=== PATIENT | female | born 1940 | race Caucasian/White ===

== ENCOUNTER → 2019-09-10 10:40 | Outpatient (CLI) | payer MEDICARE, OTHER, SELFPAY ==
--- NOTE | ~2019-09-10 | MM_ITS ---
EXAMINATION: MM screening sarah BI w rommel HISTORY: Screening mammogram TECHNIQUE: Craniocaudal and mediolateral oblique 3-D tomosynthesis images were obtained and synthetic 2-D images were generated. CAD analysis was submitted and interpreted. COMPARISON: 04/24/2018, 01/11/2017, 09/02/2015 bilateral digital screening mammogram examinations BREAST PARENCHYMAL COMPOSITION: There are scattered areas of fibroglandular density. FINDINGS: Numerous scattered bilateral benign appearing calcifications are again present. There is no evidence of suspicious mass, calcification, or architectural distortion to suggest malignancy in eit her breast. There has been no suspicious interval change. IMPRESSION: 1. No mammographic evidence of malignancy. 2. Recommend routine screening mammography in one year. BI-RADS Category 2: Benign finding(s). Reviewed, dictated and finalized at location A.
== END ==
PROVIDERS: PCP Internal Medicine; Visit Provider Internal Medicine
DX: Z12.31 Encounter for screening mammogram for malignant neoplasm of breast (principal)
CPT/HCPCS: 77063; 77067

== ENCOUNTER 2020-03-28 18:55 | Emergency (ER) | payer MEDICARE, OTHER, SELFPAY ==
--- NOTE | ~2020-03-28 | XR_ITS ---
EXAMINATION: XR chest 1V portable EXAM DATE: 03/28/2020 19:24 INDICATION: Heart palpitations. History of hypertension. TECHNIQUE: Portable AP frontal chest x-ray was obtained. Comparison is made to prior examination from 06/11/2014. FINDINGS: Approximately 6 mm right midlung zone nodular density not definitely identified on prior x- ray, possible intraparenchymal nodule. Follow-up nonemergent chest CT. No confluent consolidation, pneumothorax or pleural effusion suspected. Cardiomediastinal silhouette is normal. Mild thoracic spondylosis. IMPRESSION: Indeterminate 6 mm nodular density, follow-up nonemergent chest CT. No acute findings. Reviewed, dictated and finalized at location A. IMPRESSION: Indeterminate 6 mm nodular density, follow-up nonemergent chest CT . No acute findings.
[2020-03-28 18:59] VITALS: PULSE 75; RESP 16; TEMP 36.6; O2SAT 96
[2020-03-28 19:06] VITALS: BP 177/86
--- NOTE | 2020-03-28 19:10 | ECG_ITS ---
Measurements Intervals [place] Rate: 78 P: -2 OK: 173 QRS: 20 QRSD: 98 T: 60 QT: 364 QTc: 415 Interpretive Statements SINUS RHYTHM BASELINE ARTIFACT- I, III, V1 NORMAL ECG Electronically Signed On 03-28-2020 19:37:58 CDT by Jay Ray D.O.
--- NOTE | 2020-03-28 19:11 | ED.GENADULT ---
HPI - General Adult General Chief complaint: Arrhythmia/Palpitations Stated complaint: palpatations Time Seen by Provider: 03/28/20 19:02 Source: RN notes reviewed History of Present Illness HPI narrative: Patient presents to emergency department from home for palpitations. Patient states that today she had episode of palpitations where she felt like her heart was racing. She states that with this episode she became flushed and had tingling in her bilateral hands as well as a rash to her bilateral forearms. Patient states the symptoms last approximately 2 hours and resolved on their own. She is asymptomatic at this time. She denies having any chest pain or shortness of breath during the episode. Patient denies any previous history of cardiac arrhythmia states she had just eaten a birthday lunch prior to this and had crab cakes. She denies any fevers or chills Related Data Home Medications Medication Instructions Recorded Confirmed calcium polycarbophil 625 mg tablet 1,250 mg PO BID 04/24/19 01/28/20 conjugated estrogens 0.625 mg/gram 0.625 mg VAGINAL DAILY 04/24/19 01/28/20 vaginal cream desonide 0.05 % topical cream 1 applic TOPICAL DAILY 04/24/19 01/28/20 famotidine 10 mg tablet 10 mg PO DAILY 04/24/19 01/28/20 fexofenadine 180 mg tablet 180 mg PO DAILY 04/24/19 01/28/20 lysine 500 mg tablet 500 mg PO DAILY 04/24/19 01/28/20 multivitamin 1 tablet PO DAILY 04/24/19 01/28/20 omega-3 fatty acids 1,000 mg 1,000 mg PO BID 04/24/19 01/28/20 capsule polyethylene glycol 3350 17 17 gm PO DAILY 04/24/19 01/28/20 gram/dose oral powder solifenacin 5 mg tablet 5 mg PO DAILY 04/24/19 01/28/20 vit C 250 mg-E 200 unit-zinc 40 1 tablet PO BID 04/24/19 01/28/20 mg-copper 1 [id number] capsule Allergies Allergy/AdvReac Type Severity Reaction Status Date / Time fluconazole Allergy Unknown Unknown Verified 01/28/20 10:24 ibuprofen Allergy Unknown Unknown Verified 01/28/20 10:24 methylprednisolone Allergy Unknown Unknown Verified 01/28/20 10:24 nitroglycerin Allergy Unknown Unknown Verified 01/28/20 10:24 Sulfa (Sulfonamide Allergy Unknown Rash Verified 01/28/20 10:24 Antibiotics) sulfanilamide Allergy Unknown Rash Verified 01/28/20 10:24 tramadol Allergy Unknown Other Verified 01/28/20 10:24 Review of Systems Review of Systems: Narrative: Gen.: Denies fevers or chills Eyes: Denies eye pain or visual change ENT: Denies congestion Respiratory: Denies shortness of breath or cough CV: See HPI GI: Denies abdominal pain nausea, emesis or diarrhea denies burning, urgency, frequency or hematuria Musculoskeletal: Denies back pain or muscle pain Neuro: Reports tingling in bilateral hands Skin: Denies rash Except as documented, all other systems reviewed and negative PMF Past Medical History Medical History Benign essential hypertension BMI 23.0-23.9, adult Encounter for general adult medical examination w/o abnormal findings Encounter for Medicare annual wellness exam Hearing loss Hormone replacement therapy (HRT) Hot flashes Hyperlipidemia Hypothyroidism (acquired) On fpc drug therapy Overactive bladder Vitamin D deficiency Family History Family History Mother Family history of osteoporosis Sibling Family history of cardiac disorder Father Family history of coronary artery disease Acute myocardial infarction Other Family history of arthritis Hypertension Social History Social History Smoking status: Never smoker Second hand tobacco smoke exposure: No Alcohol intake: never Gender identity (if verbalized by the patient): Female Exam Narrative: Exam Narrative: APPEARANCE: No acute distress, nontoxic, resting in bed EYES: EOMI HEENT: Normocephalic, atraumatic, OMM RESPIRATORY: No respiratory distress Clear to aus
[2020-03-28 19:22] VITALS: BP 163/81; PULSE 73; RESP 16; O2SAT 96
[2020-03-28 19:29] LABS: Basophils Absolute Auto 0.1 K/mm3 (0.0-0.1); Basophils Percent Auto 0.8 % (0.2-1.2); Eosinophils Absolute Auto 0.5 K/mm3 (0-0.3); Eosinophils Percent Auto 6.3 % (0-4.4); Hematocrit 39.5 % (37.0-47.0); Hemoglobin 13.6 g/dL (12.0-15.0); Immature Granulocyte Absolute 0.09 K/mm3 (0.00-0.031); Immature Granulocyte Percent A 1.1 % (0-0.5); Lymphocytes Absolute Auto 2.07 K/mm3 (0.9-3.2); Mean Corpuscular HGB Conc 34.4 g/dl (32-36); Mean Corpuscular Hemoglobin 31.2 pg (26-34); Mean Corpuscular Volume 90.6 fl (80-100); Mean Platelet Volume 8.7 fl (7.4-10.4); Monocytes Absolute Auto 1.1 K/mm3 (0.1-0.6); Monocytes Percent Auto 12.8 % (2.6-8.5); Neutrophils Absolute Auto 4.5 K/mm3 (1.3-6.7); Platelet Count Result 431 k/mm3 (150-375); Red Blood Count 4.36 M/mm3 (4.2-5.4); Red Cell Distribution Width 12.3 % (11.5-14.5); White Blood Count 8.3 K/mm3 (4.5-10.0)
[2020-03-28 19:39] LABS: INR 0.9; Partial Thromboplastin Time 26.9 SECONDS (22.3-36.8); Prothrombin Time 12.2 Seconds (11.1-14.7)
[2020-03-28 19:40] LABS: Anion Gap 12 mmol/L (8-16); Blood Urea Nitrogen 16 mg/dL (7-17); Carbon Dioxide 27 mmol/L (22-30); Chloride 94 mmol/L (98-107); Estimated CRCL calculation 50 ml/min; Estimated Glomerular Filt Rate > 60; Glucose 100 mg/dL (65-105); Magnesium 1.9 mg/dL (1.6-2.3); Potassium 4.6 mmol/L (3.4-5.0); Sodium 133 mmol/L (137-145)
[2020-03-28 19:52] LABS: Troponin I < 0.012 ng/mL (0.000-0.034)
[2020-03-28 20:15] VITALS: BP 157/74; PULSE 70; RESP 17; O2SAT 97
[2020-03-28 21:15] VITALS: BP 158/66; PULSE 76; RESP 14; O2SAT 95
[2020-03-28 22:51] LABS: Troponin I < 0.012 ng/mL (0.000-0.034)
[2020-03-28 23:02] VITALS: BP 147/73; PULSE 74; RESP 16; O2SAT 95
== END 2020-03-28 23:05 | disposition home or self-care (01) ==
PROVIDERS: Emergency Provider Emergency Medicine; PCP Internal Medicine
DX: R00.2 Palpitations (principal); I10 Essential (primary) hypertension; E78.5 Hyperlipidemia, unspecified; E03.9 Hypothyroidism, unspecified; E55.9 Vitamin D deficiency, unspecified; N32.81 Overactive bladder
CPT/HCPCS: 36415; 71045; 80048; 83735; 84484; 85025; 85610; 85730; 93005; 99284

== ENCOUNTER 2020-04-19 08:51 | Outpatient (CLI) | payer MEDICARE, OTHER, SELFPAY ==
--- NOTE | 2020-04-19 09:04 | ECHO_ITS ---
Patient Info Name: Diana Jara Age: 80 years : 1940 Gender: Female Ht: 65 in Wt: 145 lbs BSA: 1.75 m2 HR: 75 bpm BP: 145 / 89 mmHg Heart Rhythm: Sinus Rhythm Technical Quality: Good Exam Date: 04/19/2020 9:18 AM Exam Location: [facility] Patient Status: Outpatient Admit Date: 04/19/2020 Staff Ordering Physician: Kirk Jack MD Tailercpa: Marianna Davis RDCS Attending Provider: Kirk Jack MD Referring Physician: Guero CARDENAS; Exam Type: CA echo doppler color flow Study Info Indications I10 - Essential (primary) hypertension Complete two-dimensional, color flow and Doppler transthoracic echocardiogram is performed. Summary 1. Complete two-dimensional, color flow and Doppler transthoracic echocardiogram is performed. 2. Left ventricular chamber dimension is normal. 3. Left ventricular systolic function is normal, estimated at 60-65%. 4. There is trace mitral valve regurgitation. Left Ventricle Left ventricular chamber dimension is normal. Left ventricular systolic function is normal, estimated at 60-65%. The left ventricular diastolic function is grade I diastolic dysfunction. Right Ventricle Right ventricular chamber dimension is normal. Left Atria Left atrial chamber dimension is normal. Right Atria Right atrial chamber dimension is normal. Aortic Valve The aortic valve is normal. Pulmonic Valve The pulmonic valve is normal. Mitral Valve The mitral valve has normal leaflets. There is trace mitral valve regurgitation. Tricuspid Valve The tricuspid valve leaflets are normal. Pericardium/Pleural The pericardium appears normal. Aorta The aortic root size at the sinus of Valsalva is normal. Left Ventricular Outflow Tract Name Value Normal LVOT 2D LVOT Diameter 2.0 cm LVOT Doppler LVOT Peak Gradient 5 mmHg LVOT Mean Gradient 3 mmHg LVOT VTI 22 cm LVOT VTI/AV VTI Ratio 0.8 LVOT Stroke Volume 69 ml LVOT CO 14.5 l/min LVOT CI 8.3 l/min/m2 Pulmonic Valve Name Value Normal PV Doppler PV Peak Gradient 2 mmHg Mitral Valve Name Value Normal MV Doppler MV Decel [place] 415 cm/s2 MV PHT 55 ms MV Area (PHT) 4.0 cm2 4.0-5.0 MV Diastolic Function
--- NOTE | 2020-04-26 12:37 | WPDHOLTEREM ---
Holter/Event Monitor Holter/Event Monitor Date of procedure: 04/19/20 Procedure Type: 48 hour holter monitor Indications: Palpitations Conclusion: 1. 48 hour holter monitor on 04/19/20. 2. Predominant rhythm is sinus rhythm. HR range 50-109 bpm; average HR 71 bpm. 3. There are 35 premature supraventricular complexes and 4 supraventricular couplets. One run of supraventricular tachycardia at 120 bpm lasting 10 beats. 4. No premature ventricular complex. No ventricular tachycardia. 5. No sinoatrial or atrioventricular blocks. No significant pauses greater than 2 seconds. 6. Patient reports shortness of breath and coughing which demonstrate sinus rhythm, HR range 86-91 bpm.
== END 2020-04-19 08:52 | disposition home or self-care (01) ==
PROVIDERS: PCP Internal Medicine; Visit Provider Internal Medicine
DX: R00.2 Palpitations (principal); I10 Essential (primary) hypertension
CPT/HCPCS: 93225; 93226; 93306

== ENCOUNTER → 2020-05-12 08:26 | Outpatient (CLI) | payer MEDICARE, OTHER, SELFPAY ==
--- NOTE | ~2020-05-12 | CT_ITS ---
EXAMINATION: CT sinus wo con DATE: 05/12/2020 08:48 INDICATION: Cough. Postnasal drip. TECHNIQUE: Computed tomography (CT) of the paranasal sinuses was performed without contrast. Iterativ e reconstruction technique was employed. Exam dose: 288.85 mGy-cm total exam DLP. COMPARISON: 08/08/2016 CT brain FINDINGS: There is leftward deviation of the nasal septum. There is moderate relatively symmetric soft tissue swelling of the nasal turbinates. There is katie bullosa and intralamellar cell of the left middle nasal turbinate. There is a focal area of thinning or absence of the medial wall of the left maxillary and traumatic a t the middle meatus, possibly a nasal antral window; recommend correlation with any surgical interven tion. There is mild soft tissue thickening of some of the ethmoid septae bilaterally but otherwise the para nasal sinuses are normally developed and aerated, without mucoperiosteal thickening, air-fluid level, soft tissue mass density or bone destruction. The ostiomeatal units and mastoid air cells are normally developed and aerated bilaterally. IMPRESSION: Leftward deviation of nasal septum Katie bullosa and interlamellar cell of left middle nasal turbinate Possible left nasal antral window versus focal thinning of the medial wall of the left maxillary antr um; recommend correlation with history of any any surgical intervention Mild soft tissue thickening of occasional ethmoid air cells; otherwise the paranasal sinuses, ostiome atal units and mastoid air cells are normally developed and aerated Reviewed, dictated and finalized at Location A. Reviewed, dictated and finalized at location A. MACY SALESPERSON IMPRESSION: Leftward deviation of nasal septum Katie bullosa and interlamellar cell of left middle nasal turbinate Possible left nasal antral window versus focal thinning of the medial wall of t he left maxillary antrum; recommend correlation with history of any any surgica l intervention Mild soft tissue thickening of occasional ethmoid air cells; otherwise the para nasal sinuses, ostiomeatal units and mastoid air cells are normally developed a nd aerated
--- NOTE | ~2020-05-12 | CT_ITS ---
EXAMINATION: CT chest wo con DATE: 05/12/2020 08:47 INDICATION: R91.1 - Solitary pulmonary nodule, chronic cough TECHNIQUE: Computed tomography (CT) of the chest was performed without intravenous contrast. Addition al 3D reconstructions utilizing coronal maximum intensity projection (MIP) were performed. Automated exposure control and iterative reconstruction technique were employed. The dose-length product was 72 .85 mGy-cm. COMPARISON: 08/08/2016 FINDINGS: Calcified calcified left hilar and calcified intrafissural lymph node along the left major fissure co nsistent with old granulomatous disease. Additional 2 mm noncalcified nodule along the left major fis sure. No other suspicious pulmonary nodules. The nodular opacity on the prior chest radiograph corres ponds to costochondral calcification at the anterior right fourth rib. No pneumonia or other pulmonar y infiltrates, pulmonary edema, pleural effusion or pneumothorax. Small bilateral posterior noncalcif ied pleural plaques. Heart size is normal. No pericardial effusion. Thoracic aorta is normal in calib er. No pathologically enlarged thoracic lymphadenopathy. Heterotopic ossifications or more likely ezekiel cified lymph nodes related to granulomatous disease along the dome of the liver and at the thoracic h iatus.. Mild thoracic levocurvature with moderate spondylosis. IMPRESSION: 1. Nodular opacity projecting over the right midlung zone on prior chest radiograph corresponds to co stochondral calcific calcification at the anterior right first rib. 2. 2 mm nodule along the left major fissure most likely sequela of old granulomatous disease. If the patient is low risk for lung cancer, no follow-up is needed. If the patient is high risk (i.e., histo ry of smoking or asbestos or significant radiation exposure), optional follow-up low-dose noncontrast chest CT could be considered at 12 months. Reviewed, dictated and finalized at location A. RADIOLOGY IMPRESSION: 1. Nodular opacity projecting over the right midlung zone on prior chest radiog raph corresponds to costochondral calcific calcification at the anterior right first rib. 2. 2 mm nodule along the left major fissure most likely sequela of old granulom atous disease. If the patient is low risk for lung cancer, no follow-up is need ed. If the patient is high risk (i.e., history of smoking or asbestos or signif icant radiation exposure), optional follow-up low-dose noncontrast chest CT cou ld be considered at 12 months.
== END ==
PROVIDERS: PCP Internal Medicine; Visit Provider Internal Medicine
DX: R91.1 Solitary pulmonary nodule (principal); R05 Cough; R09.82 Postnasal drip; M79.89 Other specified soft tissue disorders
CPT/HCPCS: 70486; 71250

== ENCOUNTER → 2020-06-07 14:49 | Outpatient (CLI) | payer MEDICARE, OTHER, SELFPAY ==
--- NOTE | ~2020-06-07 | XR_ITS ---
XR hip LT min 3V w AP pelvis DATE: 06/07/2020 15:22 INDICATION: Left hip pain. No known trauma. TECHNIQUE: 06/24/2009 MRI hip COMPARISON: None FINDINGS: There is diffuse osteopenia. The pubic symphysis and sacral iliac joints are intact. Hip alexy int spaces appear symmetric and relatively preserved. No pelvic fracture or bone destruction is evident. No fracture, dislocation, avascular necrosis or bone destruction of the left hip is detected. There is a prominent amount of fecal material throughout the visualized colon. IMPRESSION: Osteopenia No pelvic or left hip fracture Constipation Reviewed, dictated and finalized at location B. MENT MANAGEMENT TECHNICIAN
== END ==
PROVIDERS: PCP Internal Medicine; Visit Provider Internal Medicine
DX: M25.552 Pain in left hip (principal); M85.852 Other specified disorders of bone density and structure, left thigh; K59.00 Constipation, unspecified
CPT/HCPCS: 73502

== ENCOUNTER 2020-07-05 11:00 | Outpatient (RCR) | payer MEDICARE, OTHER, SELFPAY ==
--- NOTE | 2020-06-16 11:09 | PTOPEVAL ---
PHYSICAL THERAPY EVALUATION AND PLAN OF CARE 06-16-20 Thank you for referring Diana Jara to [facility].? She is scheduled to be seen for therapy?2x/week for 4 weeks. Please review, sign, date and return this plan of care JERMAINE. I agree with and certify that the following plan of care is medically necessary. Referring Physician Date Attending Provider: Kirk Jack MD PT Outpatient Evaluation Start: 06/16/20 09:08 Document 06/16/20 10:00 TAMELA (Rec: 06/16/20 11:09 TAMELA [id number]) Outpatient Past Medical History Past Medical History Source of Past Medical History Patient Neurological History Hx Neurological Disorders No Significant History Cardiovascular History Hx Hypercholesterolemia Yes: meds Hx Hypertension Yes: meds Respiratory History Hx Respiratory Disorders No Significant History Gastrointestinal History Hx Appendectomy Yes Hx Gastroesophageal Reflux Disease Yes: meds Genitourinary History Hx Bladder Surgery Yes: surgery for bladder prolapse Musculoskeletal History Hx Arthritis Yes: L hip pain Hx Back Pain Yes: scoliosis and SIJ issues- previous PT for back Hematological History Hx Hematological Disorders No Significant History Endocrine History Hx Hypothyroidism Yes: meds HEENT History Hx HEENT Disorders No Significant History Evaluation Information Problem Diagnosis L hip pain/trochanteric bursitis Onset Jun Subjective Information no injury to back or hips; Query Text:As Reported By Patient/ have a history of back and L Family hip pain--have had injections in both, bursitis of hip; last injection ~ 2010; have seen ortho dr for back non surgical ; have not seen ortho dr about hip in the past ; have taken steroid pack, just completed yesterday- helped decrease hip pain; not as active since COVID restrictions, gained wt and not doing [employer] for fitness Diagnostic Tests X-Rays For This Problem Yes: L hip-diffuse osteopenia MRI For This Problem No Other Tests For This Problem No Previous Treatments Previous Treatments For This Problem no PT for the past few years Prior Level of Function Activity Level (Last 3 Months) Occupation retired Activity of Daily Living Ability Independent Indoor/Home Mobil
--- NOTE | 2020-07-06 15:59 | PCPTNOTE ---
pt called and canceled her PT appointments, due to going to a pain management dr. Stated she will call if additional therapy is needed.
--- NOTE | 2020-07-26 12:54 | PCPTNOTE ---
PHYSICAL THERAPY DISCHARGE 07-26-20 Attending Provider: Kirk Jack MD Patient:Diana Jara Date of :1940 Mrs. Jara has received 6 PT sessions, from June 16 to July 05, for the diagnosis of pain in L hip. She then called and stated wants to stop PT, due to going to pain management. Therefore, she will be discharged at this time. The goals were not assessed. Thank you for referring Diana to [facility]. Please review, sign, date and return this discharge summary JERMAINE. I have been updated about the patient's current status and I agree with discharge from the above service at this time. Referring Physician Date
== END 2020-07-27 10:14 | disposition home or self-care (01) ==
LOC: ANHPT 11:00
PROVIDERS: PCP Internal Medicine; Visit Provider Internal Medicine
DX: M25.552 Pain in left hip (principal)
CPT/HCPCS: 97014; 97035; 97110; 97140; 97161; G0283

== ENCOUNTER → 2020-07-08 11:14 | Outpatient (CLI) | payer MEDICARE, OTHER, SELFPAY ==
--- NOTE | ~2020-07-08 | XR_ITS ---
XR sacroiliac joints min 3V DATE: 07/08/2020 11:36 INDICATION: Sacroiliac joint pain TECHNIQUE: AP and bilateral oblique views COMPARISON: None FINDINGS: Diffuse osteopenia. The sacroiliac joints are intact. No erosive change or ankylosis. There is a transitional lumbosacral vertebra with sacralization pseudoarthrosis on the left; this may be a source of chronic back pain. There is very prominent amount of fecal material in the rectum and colon. 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 Reviewed, dictated and finalized at location A. FOOTBALL COACH IMPRESSION: Transitional lumbosacral vertebra with sacralization pseudoarthrosi s on the left Normal sacroiliac joints Diffuse osteopenia Very prominent of fecal material in the rectum and colon
== END ==
PROVIDERS: Visit Provider Nurse Practitioner Adult Health
DX: M53.3 Sacrococcygeal disorders, not elsewhere classified (principal); M54.16 Radiculopathy, lumbar region; M85.88 Other specified disorders of bone density and structure, other site
CPT/HCPCS: 72202

== ENCOUNTER → 2020-07-16 12:03 | Outpatient (CLI) | payer MEDICARE, OTHER, SELFPAY ==
--- NOTE | ~2020-07-16 | MR_ITS ---
EXAMINATION: MR lumbar spine wo con DATE: 07/16/2020 12:58 INDICATION: Lumbar radiculopathy. Low back pain and left leg pain. TECHNIQUE: Magnetic resonance imaging (MRI) of the lumbar spine was performed without intravenous con trast. Sequences included sagittal T2-weighted FSE, sagittal T2-weighted FS FSE, sagittal T1-weighted FSE, and axial T2-weighted FSE. COMPARISON: Lumbar spine MRI 12/18/2008 FINDINGS: There is 14 degrees levoscoliosis of lumbar spine. There is 3 mm anterolisthesis of L4 on L 5. Vertebral body heights are normal. There is mildly decreased disc height from L1-L2 through L5-S1. 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 The distal spinal cord signal intensi ty is normal. The conus medullaris is at L1. There are cysts in the kidneys measuring up to 1.6 cm on the left. The following disc levels are specifically discussed: L1-L2: The disc is bulging and has an annular fissure. There is mild lateral facet joint osteoarthrit is. There is mild bilateral neural foraminal stenosis. There is mild central canal stenosis. L2-L3: The disc is bulging and has an annular fissure. There is moderate right and mild left facet alexy int osteoarthritis. There is mild bilateral neural foraminal stenosis. There is mild central canal st enosis. L3-L4: The disc is bulging and has an annular fissure. There is severe right and moderate left facet joint osteoarthritis. There is mild bilateral neural foraminal stenosis. There is mild central canal stenosis. L4-L5: The disc is bulging and has an annular fissure. There is severe bilateral facet joint osteoart hritis. There is moderate right and mild left neural foraminal stenosis. There is mild central canal stenosis. L5-S1: The disc does not extend beyond the endplate margin. There is moderate bilateral facet joint o steoarthritis. There is no neural foraminal stenosis. There is no central canal stenosis. IMPRESSION: 1. Mild lumbar spondylosis. 2. Lumbar levoscoliosis. Reviewed, dictated and finalized at location A. RVISOR ABATTOIR
== END ==
PROVIDERS: Visit Provider Nurse Practitioner Adult Health
DX: M53.3 Sacrococcygeal disorders, not elsewhere classified (principal); M47.26 Other spondylosis with radiculopathy, lumbar region
CPT/HCPCS: 72148

== ENCOUNTER → 2020-08-11 15:05 | Outpatient (CLI) | payer MEDICARE, OTHER, SELFPAY ==
--- NOTE | ~2020-08-11 | XR_ITS ---
XR chest 2V 08/11/2020 15:41 Indication: Hyponatremia. Hypoosmolality. Procedure: 2 view chest Comparison: 03/28/2020 Findings: Heart size normal. No focal air space disease, pulmonary edema, pleural effusion or suspect ed pneumothorax. The lungs are hyperinflated which is consistent with, but not diagnostic of chronic obstructive pulmonary disease. There are calcified granulomas in the right lung base. Impression: 1: No acute cardiopulmonary disease. Reviewed, dictated and finalized at location A. AD TOOL GRINDER SET UP OPERATOR Impression: 1: No acute cardiopulmonary disease.
--- NOTE | ~2020-08-11 | CT_ITS ---
EXAMINATION: CT brain wo/w con DATE: 08/11/2020 15:35 INDICATION: Altered mental status. Hyponatremia. TECHNIQUE: Computed tomography (CT) of the head was performed without and and with 100 cc Omnipaque 3 50 intravenous contrast. The dose-length product was 1049.24 mGy-cm. Automated exposure control and i terative reconstruction technique were employed. COMPARISON: CT dated 08/08/2016 FINDINGS: Brain parenchymal volume is normal. There are scattered mild periventricular and subcortica l white matter changes, most likely related to small vessel ischemic disease (microangiopathy). No ac [place] intracranial hemorrhage, infarction, mass or mass effect. No ventriculomegaly or midline shift. B asilar cisterns are patent. No significant abnormality of the paranasal sinuses or mastoids. No depre ssed skull fractures. No abnormal contrast enhancement. IMPRESSION: 1. No acute intracranial abnormality. No significant interval change. Reviewed, dictated and finalized at location A. [employer]ACH[employer]
== END ==
PROVIDERS: PCP Internal Medicine; Visit Provider Internal Medicine
DX: E87.1 Hypo-osmolality and hyponatremia (principal)
CPT/HCPCS: 70470; 71046; Q9967

== ENCOUNTER → 2020-08-28 02:17 | Outpatient (CLI) | payer MEDICARE, OTHER, SELFPAY ==
[2020-08-28 20:22] LABS: SARS-CoV-2 RNA PCR Negative
== END ==
PROVIDERS: PCP Internal Medicine; Visit Provider Internal Medicine Gastroenterology
DX: Z01.812 Encounter for preprocedural laboratory examination (principal); Z20.822 Contact with and (suspected) exposure to COVID-19
CPT/HCPCS: C9803; U0003; U0005

== ENCOUNTER 2020-08-31 01:34 | Day surgery (SDC) | payer MEDICARE, OTHER, SELFPAY ==
[2020-08-18 10:12] VITALS: BMI 23.8
[2020-08-31 09:46] VITALS: BP 169/79; PULSE 85; RESP 14; TEMP 36.2; O2SAT 97
[2020-08-31] MEDS: LACTATED RINGERS 1,000 ML 150 ML IV CONT (09:56)
--- NOTE | 2020-08-31 10:34 | WPDANESEPPF ---
Anes - Initial Pre Proc Eval Procedure: Operation Date: 08/31/20 11:00 Proposed Procedures p Screening Colonoscopy - Jones Barraza MD Date/Time: 08/31/20 10:34 Surgeon: Jones Barraza MD Pre Op Diagnosis: Neoplasm Screening Patient Data Age: 80 Gender: F Height: 5 ft 5 in Weight: 63.1 kg Last Vital Signs Temp 36.2 C L 08/31/20 09:46 Pulse 85 08/31/20 09:46 Resp 14 08/31/20 09:46 BP 169/79 H 08/31/20 09:46 Pulse Ox 97 08/31/20 09:46 Allergies Allergy/AdvReac Type Severity Reaction Status Date / Time Sulfa (Sulfonamide Allergy Unknown Rash Verified 08/31/20 09:49 Antibiotics) tramadol Allergy Unknown Chest Pain Verified 08/31/20 09:49 nitroglycerin AdvReac Unknown Hypotension Verified 08/31/20 09:49 Home Medications Medication Instructions Recorded Confirmed Type calcium polycarbophil 625 mg tablet 1,250 mg PO BID 04/24/19 08/18/20 History conjugated estrogens 0.625 mg/gram 0.625 mg VAGINAL DAILY 04/24/19 08/18/20 History vaginal cream famotidine 10 mg tablet 10 mg PO DAILY 04/24/19 08/18/20 History fexofenadine 180 mg tablet 180 mg PO DAILY 04/24/19 08/18/20 History lysine 500 mg tablet 500 mg PO DAILY 04/24/19 08/18/20 History multivitamin 1 tablet PO DAILY 04/24/19 08/18/20 History omega-3 fatty acids 1,000 mg 1,000 mg PO BID 04/24/19 08/18/20 History capsule polyethylene glycol 3350 17 17 gm PO DAILY 04/24/19 08/18/20 History gram/dose oral powder solifenacin 5 mg tablet 5 mg PO DAILY 04/24/19 08/18/20 History vit C 250 mg-vit E 90 mg-zinc 40 1 tablet PO BID 04/24/19 08/18/20 History mg-copper 1 [id number] capsule bupropion HCl 150 mg 24 hr tablet, 150 mg PO BID #180 tablet 09/23/19 08/18/20 Rx extended release levothyroxine 100 mcg tablet 100 mcg PO DAILY #90 tablet 04/21/20 03/17/21 Rx simvastatin 20 mg tablet 20 mg PO DAILY #90 tablet 09/23/19 08/18/20 Rx amlodipine 5 mg tablet 5 mg PO DAILY #90 tablet 01/28/20 08/18/20 Rx valacyclovir 1 gram tablet 1,000 mg PO DAILY #12 tablet 01/28/20 08/18/20 Rx magnesium chloride 71.5 mg 71.5 mg PO BID #60 tablet 04/13/20 08/18/20 Rx (magnesium chloride) tablet,delayed release fluticasone propionate 50 2 spray INTRANASAL DAILY #9.9 ml 04/26/20 08/18/20 Rx mcg/actuation nasal spray,suspension desonide 0.05 % topical cream 1 applic TOPICAL DAILY #15 g 07/14/20 08/18/20 Rx lisinopril 40 mg tablet See Rx Instructions PO .COMPLEX 08/10/20 08/18/20 Rx #135 tablet Patient hx anesthesia problems: post op nausea/vomiting Family hx anesthesia problems: none PMFSH Past Medical History Medical History Benign essential hypertension BMI 23.0-23.9, adult BMI 24.0-24.9, adult Chronic cough Colon cancer screening Encounter for general adult medical examination w/o abnormal findings Encounter for Medicare annual wellness exam Family history of diabetes mellitus Follow up Hearing loss Heart palpitations Hormone replacement therapy (HRT) Hot flashes Hyperlipidemia Hyponatremia Hypothyroidism (acquired) Left hip pain Low back pain Lung nodule Nasal septal deviation On intermediate drug therapy Overactive bladder Pain of left breast Post-nasal drainage Rash Vitamin D deficiency Family History Family History Mother Family history of osteoporosis Sibling Family history of cardiac disorder Father Family history of coronary artery disease Acute myocardial infarction Other Family history of arthritis Hypertension Social History Social History Smoking packs per day: 0.5 Smoking cigarettes per day: 10.0 Years smoked: 20 Smoking pack-years: 10.00 Smoking status: Former smoker Tobacco type: cigarettes Second hand tobacco smoke exposure: No Smoking end date: 07/05/98 Alcohol intake:
--- NOTE | 2020-08-31 10:49 | PM.HPGS ---
History of Present Illness History of Present Illness Consent: Risks, benefits, and alternatives have been discussed and questions answered. Patient agrees to proceed with procedure. Chief complaint: Neoplasm Screening Narrative: Diana Jara is a 80 year old female here for screening colonoscopy, last one 10 years ago Review of Systems Constitutional: Constitutional: Denies headache(s) and Denies weakness Eyes: Eyes: Denies blurry vision ENT: Reports Normal hearing present, Denies headache(s) and Denies neck pain Cardiovascular: Cardiovascular: Denies chest pain and Denies dyspnea Respiratory: Respiratory: Denies dyspnea Gastrointestinal: Gastrointestinal: Reports no additional gastrointestinal complaints Genitourinary: Genitourinary: Denies dysuria Musculoskeletal: Musculoskeletal: Denies neck pain Integumentary/Breasts: Skin/Breast: Denies dry skin Neurologic: Reports Normal hearing present, Denies headache(s) and Denies weakness Psychiatric: Psychiatric: Denies anxiety Endocrine: Endocrine: Denies change in body appearance Hematologic/Lymphatic: Hematologic/Lymphatic: Denies easy bleeding Allergic/Immunologic: Allergic/Immunologic: Denies urticaria PMFSH Past Medical History Medical History Benign essential hypertension BMI 23.0-23.9, adult BMI 24.0-24.9, adult Chronic cough Colon cancer screening Encounter for general adult medical examination w/o abnormal findings Encounter for Medicare annual wellness exam Family history of diabetes mellitus Follow up Hearing loss Heart palpitations Hormone replacement therapy (HRT) Hot flashes Hyperlipidemia Hyponatremia Hypothyroidism (acquired) Left hip pain Low back pain Lung nodule Nasal septal deviation 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 Overactive bladder Pain of left breast Post-nasal drainage Rash Vitamin D deficiency Family History Family History Mother Family history of osteoporosis Sibling Family history of cardiac disorder Father Family history of coronary artery disease Acute myocardial infarction Other Family history of arthritis Hypertension Social History Social History Smoking packs per day: 0.5 Smoking cigarettes per day: 10.0 Years smoked: 20 Smoking pack-years: 10.00 Smoking status: Former smoker Tobacco type: cigarettes Second hand tobacco smoke exposure: No Smoking end date: 07/05/98 Alcohol intake: never Substance use: never Substance use type: does not use Living arrangements: with family Gender identity (if verbalized by the patient): Female Spiritual care concerns: No Meds Home Medications and Allergies Home Medications Medication Instructions Recorded Confirmed Type calcium polycarbophil 625 mg tablet 1,250 mg PO BID 04/24/19 08/18/20 History conjugated estrogens 0.625 mg/gram 0.625 mg VAGINAL DAILY 04/24/19 08/18/20 History vaginal cream famotidine 10 mg tablet 10 mg PO DAILY 04/24/19 08/18/20 History fexofenadine 180 mg tablet 180 mg PO DAILY 04/24/19 08/18/20 History lysine 500 mg tablet 500 mg PO DAILY 04/24/19 08/18/20 History multivitamin 1 tablet PO DAILY 04/24/19 08/18/20 History omega-3 fatty acids 1,000 mg 1,000 mg PO BID 04/24/19 08/18/20 History capsule polyethylene glycol 3350 17 17 gm PO DAILY 04/24/19 08/18/20 History gram/dose oral powder solifenacin 5 mg tablet 5 mg PO DAILY 04/24/19 08/18/20 History vit C 250 mg-vit E 90 mg-zinc 40 1 tablet PO BID 04/24/19 08/18/20 History mg-copper 1 [id number] capsule bupropion HCl 150 mg 24 hr tablet, 150 mg PO BID #180 tablet 09/23/19 08/18/20 Rx extended release levothyroxine 100 mcg tablet 100 mcg PO DAILY #90 tablet 09/23/19 08/18/20 Rx simvastatin 20 mg tablet 20 mg PO DAILY #90 tablet 09/23/19 08/18/20 Rx amlodipine 5
[2020-08-31 11:20] VITALS: BP 108/57; PULSE 68; RESP 17; O2SAT 100
[2020-08-31 11:30] VITALS: BP 121/66; PULSE 74; RESP 18; O2SAT 100
[2020-08-31 11:40] VITALS: BP 129/74; PULSE 67; RESP 22; O2SAT 100
== END 2020-08-31 11:50 | disposition home or self-care (01) ==
PROVIDERS: PCP Internal Medicine; Visit Provider Internal Medicine Gastroenterology
PROC: 0DJD8ZZ Inspection of Lower Intestinal Tract, Via Natural or Artificial Opening Endoscopic (ICD-10-PCS; CPT 45378; principal; 2020-08-31 11:00)
DX: Z12.11 Encounter for screening for malignant neoplasm of colon (principal); D12.2 Benign neoplasm of ascending colon; K52.9 Noninfective gastroenteritis and colitis, unspecified; H91.90 Unspecified hearing loss, unspecified ear; R00.2 Palpitations; Z79.890 Hormone replacement therapy; E78.5 Hyperlipidemia, unspecified; E87.1 Hypo-osmolality and hyponatremia; E03.9 Hypothyroidism, unspecified; J34.2 Deviated nasal septum; N32.81 Overactive bladder; E55.9 Vitamin D deficiency, unspecified; Z87.891 Personal history of nicotine dependence; I10 Essential (primary) hypertension
CPT/HCPCS: 45380; 88305; J2704; J7120

== ENCOUNTER 2020-10-22 09:08 | Outpatient (CLI) | payer MEDICARE, OTHER, SELFPAY ==
[2020-10-22 10:44] LABS: Cortisol Baseline 6.88 ug/dL
== END 2020-10-22 09:09 | disposition home or self-care (01) ==
LOC: ANHVASCINF 09:10
PROVIDERS: PCP Internal Medicine; Visit Provider Internal Medicine Nephrology
DX: E87.1 Hypo-osmolality and hyponatremia (principal); R89.1 Abnormal level of hormones in specimens from other organs, systems and tissues
CPT/HCPCS: 36415; 82533; J0834

== ENCOUNTER 2020-10-27 11:00 | Outpatient (RCR) | payer MEDICARE, OTHER, SELFPAY ==
--- NOTE | 2020-09-28 10:05 | PTOPEVAL ---
PHYSICAL THERAPY EVALUATION AND PLAN OF CARE 09-28-20 Thank you for referring Diana Jara to [facility], for the diagnosis of lumbar pain.? Mrs. Jara is scheduled to be seen for therapy? 2 x/week for 4 weeks. Please review, sign, date and return this plan of care JERMAINE. I agree with and certify that the following plan of care is medically necessary. Referring Physician Date Attending Provider: INGRID Joshi PT Outpatient Evaluation Document 09/28/20 09:00 TAMELA (Rec: 09/28/20 10:05 TAMELA [id number]) Neurological History Hx Neurological Disorders No Significant History Cardiovascular History Hx Hypercholesterolemia Yes: meds control Hx Hypertension Yes: meds control Respiratory History Hx Respiratory Disorders No Significant History Gastrointestinal History Hx Appendectomy Yes Hx Gastroesophageal Reflux Disease Yes Genitourinary History Hx Bladder Surgery Yes: surgery for bladder prolapse Musculoskeletal History Hx Arthritis Yes: L hip pain Hx Back Pain Yes: scoliosis and SIJ issues- previous PT for back Hematological History Hx Hematological Disorders No Significant History Endocrine History Hx Hypothyroidism Yes: meds HEENT History Hx Eye Surgery Yes: L eye macular surgery Integumentary History Hx Skin Disorders No Significant History Reproductive History Hx Hysterectomy Yes Psychosocial History Hx Psychiatric Disorders No Significant History Evaluation Information Problem Diagnosis lumbar pain Onset Jun 2020 Subjective Information Diana reports: gradual Query Text:As Reported By Patient/ increase in pain in June Family and more problems with walking ; at pain management, about 4- 8 wk ago had epidural injections in her lumbar, L SIJ and L hip--have helped her pain; have been doing a few of the exercises for her back from PT in the past; have an exercise ball at home-- have not been using it; Diagnostic Tests MRI For This Problem Yes: lumbar:bulging discs, facet jt OA,foraminal stenosis , anterolisthesis L 4-5 Previous Treatments Previous Treatments For This Problem had PT here in past; Prior Level of Function Activity Level (Last 3 Months) Occupation retired Hand Dominance Right Activity of Daily Living Ability Independent
--- NOTE | 2020-10-27 11:53 | PTOPEVAL ---
PHYSICAL THERAPY DISCHARGE 10-27-20 Refer to the clinical summary for her status with today's session, compared to the initial evaluation. The goals were partially achieved. She is independent with her home exercises and understands activity/ rest balance to assist in managing her chronic pain. Thank you for referring Diana Jara to [facility].? Please review, sign, date and return this Discharge JERMAINE. I agree with and certify that the following plan of care is medically necessary. Referring Physician Date Attending Provider: ALYSIA Joshi Document 10/27/20 11:05 TAMELA (Rec: 10/27/20 11:53 TAMELA [id number]) Assessment Status Discharge Subjective Information Mrs. 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; back pain is like a roller coaster- some days good and some days bad; amount of meds take varies from day to day; trunk control is better and stronger with sitting on ball exercises; doing exercises at home; Pain Assessment Timing of Pain Assessment Timing of Pain Assessment Assessment Pain Scale Pain Scale Used Numeric (1 - 10) Self Report Pain Assessment Bilateral Spine, Lumbar Reported Pain Level 6 Pain Description Aching,Burning,Dull Pain Frequency Chronic,Intermittent Lowest Pain Intensity 0 Greatest Pain Intensity 8 Pain Aggravating Factors Exercise/Activity,Weight Bearing/Standing Other Pain Aggravating Factors yard work; stand too long with meal prep; Pain Score Pain Score 6: Self Report Additional Pain Score Comments self assessment functional score with the Oswestry score of 42% limitation in activity; reported tolerances: sitting 40 min, walking 20 min, sleeping 3 hours at a time; try to do some work, then rest with ice before do more; pt has a good understanding of work/rest activity balance to manage her pain; Interventions Used Interventions Used By Clinicians Education Pain Relief Interventions Used By Ice,Inactivity/Rest,Medication Patient ,Position Change,Sitting,TENS Other Alleviating Interventions just got home stim unit;
== END 2020-10-28 11:04 | disposition home or self-care (01) ==
LOC: ANHPT 11:00
PROVIDERS: PCP Internal Medicine; Visit Provider Nurse Practitioner Adult Health
DX: M54.5 Low back pain (principal); M54.16 Radiculopathy, lumbar region
CPT/HCPCS: 97014; 97110; 97140; 97161; G0283

== ENCOUNTER → 2020-10-29 13:56 | Outpatient (CLI) | payer MEDICARE, OTHER, SELFPAY ==
--- NOTE | ~2020-10-29 | MM_ITS ---
EXAMINATION: MM screening sarah BI w rommel HISTORY: Screening mammogram TECHNIQUE: Craniocaudal and mediolateral oblique 3-D tomosynthesis images were obtained and synthetic 2-D images were generated. CAD analysis was submitted and interpreted. COMPARISON: 09/20/2019, 04/24/2018 bilateral digital screening mammogram examinations BREAST PARENCHYMAL COMPOSITION: There are scattered areas of fibroglandular density. FINDINGS: Numerous bilateral benign calcifications including secretory calcifications, calcified micr ohematomas. There is no evidence of suspicious mass, calcification, or architectural distortion to haas ggest malignancy in either breast. There has been no suspicious interval change. IMPRESSION: 1. No mammographic evidence of malignancy. 2. Recommend routine screening mammography in one year. BI-RADS Category 2: Benign finding(s). Reviewed, dictated and finalized at location A.
== END ==
PROVIDERS: PCP Internal Medicine; Visit Provider Internal Medicine
DX: Z12.31 Encounter for screening mammogram for malignant neoplasm of breast (principal)
CPT/HCPCS: 77063; 77067

== ENCOUNTER 2020-11-01 10:14 | Emergency (ER) | payer MEDICARE, OTHER, SELFPAY ==
[2020-11-01 10:23] VITALS: BP 159/76; PULSE 75; RESP 16; TEMP 36.7; O2SAT 100
--- NOTE | 2020-11-01 10:59 | ED.EAR ---
HPI - Ear Problem General Chief complaint: Ear Stated complaint: sore throat/earache Time Seen by Provider: 11/01/20 10:37 Source: patient and RN notes reviewed Mode of arrival: ambulatory Limitations: no limitations History of Present Illness HPI Narrative: Patient presents today complaining of mild sore throat and left ear pressure and pain that has been waxing and waning along with postnasal drip x1 week. Denies congestion, rhinorrhea, fever, cough, nausea, vomiting, diarrhea. Currently rates her ear pain and sore throat 11/11 and has been taking ibuprofen Zyrtec. Pain increases with swallowing. MD Complaint: ear pain and other (Sore throat) Related Data Home Medications Medication Instructions Recorded Confirmed calcium polycarbophil 625 mg tablet 1,250 mg PO BID 04/24/19 11/01/20 conjugated estrogens 0.625 mg/gram 0.625 mg VAGINAL DAILY 04/24/19 11/01/20 vaginal cream famotidine 10 mg tablet 10 mg PO DAILY 04/24/19 11/01/20 fexofenadine 180 mg tablet 180 mg PO DAILY 04/24/19 11/01/20 lysine 500 mg tablet 500 mg PO DAILY 04/24/19 11/01/20 multivitamin 1 tablet PO DAILY 04/24/19 11/01/20 omega-3 fatty acids 1,000 mg 1,000 mg PO BID 04/24/19 11/01/20 capsule polyethylene glycol 3350 17 17 gm PO DAILY 04/24/19 11/01/20 gram/dose oral powder solifenacin 5 mg tablet 5 mg PO DAILY 04/24/19 11/01/20 vit C 250 mg-vit E 90 mg-zinc 40 1 tablet PO BID 04/24/19 11/01/20 mg-copper 1 [id number] capsule Allergies Allergy/AdvReac Type Severity Reaction Status Date / Time Sulfa (Sulfonamide Allergy Unknown Rash Verified 11/01/20 10:24 Antibiotics) tramadol Allergy Unknown Chest Pain Verified 11/01/20 10:24 nitroglycerin AdvReac Unknown Hypotension Verified 11/01/20 10:24 Review of Systems Review of Systems: Narrative: CONSTITUTIONAL: Denies body aches, fever, chills, or sweats. EYES: Denies visual changes, redness, or discharge. ENT: Denies rhinorrhea, congestion. + Sore throat, left ear pain and pressure CARDIOVASCULAR: Denies chest pain, palpitations, or edema. RESPIRATORY: Denies cough or dyspnea. GASTROINTESTINAL: Denies abdominal pain, nausea, vomiting, or diarrhea. GENITOURINARY: Denies dysuria or hematuria. SKIN: Denies rash, itching, or wounds. MUSCULOSKELETAL: Denies back pain, joint pain, or myalgia. NEUROLOGIC: Denies headache, numbness, tingling, or weakness. PSYCH: Denies depression or anxiety. 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 Overactive bladder Pain of left breast Post-nasal drainage Rash Vitamin D deficiency Family History Family History Mother Family history of osteoporosis Sibling Family history of cardiac disorder Father Family history of coronary artery disease Acute myocardial infarction Other Family history of arthritis Hypertension Social History Social History Smoking packs per day: 0.5 Smoking cigarettes per day: 10.0 Years smoked: 20 Smoking pack-years: 10.00 Smoking status: Former smoker Tobacco type: cigarettes Second hand tobacco smoke exposure: No Smoking end date: 07/05/98 Alcohol intake: never Substance use: never Substance use type: does not use Gender identity (if verbalized by the patient): Female Spiritual care concerns: No Comments At ti
== END 2020-11-01 11:15 | disposition home or self-care (01) ==
PROVIDERS: Emergency Provider Nurse Practitioner; PCP Internal Medicine
DX: H65.02 Acute serous otitis media, left ear (principal); Z87.891 Personal history of nicotine dependence; I10 Essential (primary) hypertension; E78.5 Hyperlipidemia, unspecified; E03.9 Hypothyroidism, unspecified
CPT/HCPCS: 87081; 87880; 99213; G0463

== ENCOUNTER 2021-01-13 11:00 | Outpatient (RCR) | payer MEDICARE, OTHER, SELFPAY ==
--- NOTE | 2020-12-09 11:12 | PTOPEVAL ---
PHYSICAL THERAPY EVALUATION AND PLAN OF CARE 12-09-20 Thank you for referring Diana Jara to [facility] for the diagnosis of back pain. Diana is scheduled to be seen for therapy? 2 x/week for 4 weeks. Please review, sign, date and return this plan of care JERMAINE. I agree with and certify that the following plan of care is medically necessary. Referring Physician Date Attending Provider: ALYSIA Joshi PT Outpatient Evaluation Document 12/09/20 10:05 TAMELA (Rec: 12/09/20 11:12 TAMELA [id number]) Past Medical History Source of Past Medical History Patient Neurological History Hx Neurological Disorders No Significant History Cardiovascular History Hx Hypercholesterolemia Yes: meds control Hx Hypertension Yes: meds control Respiratory History Hx Respiratory Disorders No Significant History Gastrointestinal History Hx Appendectomy Yes Hx Gastroesophageal Reflux Disease Yes Genitourinary History Hx Bladder Surgery Yes: surgery for bladder prolapse Musculoskeletal History Hx Arthritis Yes: L hip pain Hx Back Pain Yes: scoliosis and SIJ issues- previous PT for back Hematological History Hx Hematological Disorders No Significant History Endocrine History Hx Hypothyroidism Yes: meds HEENT History Hx Eye Surgery Yes: L eye macular surgery Integumentary History Hx Skin Disorders No Significant History Reproductive History Hx Hysterectomy Yes Psychosocial History Hx Psychiatric Disorders No Significant History Evaluation Information Problem Diagnosis back pain Onset 11-02-20 Subjective Information chronic pain in back and L hip Query Text:As Reported By Patient/ ; gradual increase in pain, Family no trauma or injury; is scheduled to have an injection next week; has been going to pain management in Jul 2020; continue to do home exercises from previous therapy; Diagnostic Tests X-Rays For This Problem Yes: hip L and back MRI For This Problem Yes: per pt- arthritis and scoliosis Previous Treatments Previous Treatments For This Problem PT here for LBP,discharge October 2020 Prior Level of Function Activity Level (Last 3 Months) Occupation retired Activity of Daily Living Ability Independent Indoor/Home Mobility Independent Community Mobility Independent Stairs Ability Independent Functional Cognition (Planning, Shopping Independent , Taking
--- NOTE | 2020-12-20 11:00 | PCPTNOTE ---
Patient called and states she has to cancel her appointments out for this week but did not give a reason.
--- NOTE | 2021-01-13 11:50 | PTOPEVAL ---
PHSICAL THERAPY DISCHARGE 01-13-21 Refer to the clinical summary below, for her status today, compared to the initial evaluation. The PT goals were partially achieved---strength and flexibility improved, but pain rating is the same. Thank you for referring Diana Jara to [facility].? Please review, sign, date and return this Discharge JERMAINE. I agree with and certify that the following plan of care is medically necessary. Referring Physician Date Attending Provider: INGRID Joshi Document 01/13/21 11:07 TAMELA (Rec: 01/13/21 11:50 TAMELA [id number]) Assessment Status Discharge Subjective Information Diana reports: had injection Query Text:As Reported By Patient/ last week, it helped for Family about 3-4 days, then pain returned; using home stim, have small shoe lift in L shoe , doing exercises at home; have not gotten back to the [facility] for latanya chi exercises; Pain Assessment Timing of Pain Assessment Timing of Pain Assessment Assessment Pain Scale Pain Scale Used Numeric (1 - 10) Self Report Pain Assessment Bilateral Spine, Lumbar Reported Pain Level 7 Pain Description Sharp,Throbbing Radicular Pain Location L lower lumbar- sacral area; Pain Frequency Chronic Other Pain Description constant pain and hurting; Lowest Pain Intensity 5 Greatest Pain Intensity 9 Pain Aggravating Factors Sitting Other Pain Aggravating Factors ironing, laundry, twisting back with home chores; Pain Behaviors Anxious,Guarding Pain Score Pain Score 7: Self Report Additional Pain Score Comments Oswestry self assessment functional score 52% limitation reported tolerances with: standing- varies about 10 min, sleeping 2-3 hours at time; sitting 15 min; Interventions Used Interventions Used By Clinicians Education Pain Relief Interventions Used By Exercise,Heat,Ice,Inactivity/ Patient Rest,Medication,Position Change,TENS Other Alleviating Interventions shoe lift in L shoe;ibuprofen Lower Extremity Range of Motion General Lower Extremity Range of Motion Gross Lower Extremity Range of Motion hamstring length with supine Comments SLR R 65'/L 70' supine R and L hip flexion, IR and ER- no increase in pain ;
== END 2021-01-14 16:22 | disposition home or self-care (01) ==
LOC: ANHPT 11:00
PROVIDERS: PCP Internal Medicine; Visit Provider Nurse Practitioner Adult Health
DX: M54.5 Low back pain (principal); M46.1 Sacroiliitis, not elsewhere classified
CPT/HCPCS: 97014; 97110; 97161; G0283

== ENCOUNTER 2021-04-21 10:41 | Outpatient (CLI) | payer MEDICARE, OTHER, SELFPAY ==
--- NOTE | ~2021-04-21 | US_ITS ---
EXAMINATION: US carotid duplex BI DATE: 04/21/2021 11:31 INDICATION: Carotid bruit. TECHNIQUE: Grayscale, color Doppler, and pulsed Doppler images of the cervical carotid arteries were obtained. The degree of vessel stenosis is placed in one of the following categories: normal, <50%, 5 0-69%, >=70% but less than near-occlusion, near-occlusion, or total occlusion. Note that percent sten osis relative to normal distal artery lumen diameter is indirectly measured from velocity measurement s as described by Jeffrey, et al. Radiology 2003; 229:340-346. COMPARISON: Ultrasound 01/03/2008 FINDINGS: RIGHT: The right common carotid artery (CCA) peak systolic velocity (PSV) is 69 cm/s. The right internal car otid artery (ICA) PSV is 80 cm/s. The right ICA end-diastolic velocity (EDV) is 23 cm/s. The right IC A/CCA PSV ratio is 1.2. Grayscale and color Doppler images yield an estimate of <50% diameter reducti on from plaque in the ICA. There is antegrade flow in the right vertebral artery. LEFT: The left CCA PSV is 57 cm/s. The left ICA PSV is 96 cm/s. The left ICA EDV is 23 cm/s. The left ICA/C CA PSV ratio is 1.7. Grayscale and color Doppler images yield an estimate of <50% diameter reduction from plaque in the ICA. There is antegrade flow in the left vertebral artery. IMPRESSION: 1. <50% stenosis in the right internal carotid artery. 2. <50% stenosis in the left internal carotid artery. Reviewed, dictated and finalized at location A. 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
== END 2021-04-21 10:42 | disposition home or self-care (01) ==
LOC: ANHIMG 10:44
PROVIDERS: PCP Internal Medicine; Visit Provider Internal Medicine
DX: I65.23 Occlusion and stenosis of bilateral carotid arteries (principal); R09.89 Other specified symptoms and signs involving the circulatory and respiratory systems
CPT/HCPCS: 93880

== ENCOUNTER → 2022-02-13 11:29 | Outpatient (CLI) | payer MEDICARE, OTHER, SELFPAY ==
--- NOTE | ~2022-02-13 | MM_ITS ---
EXAMINATION: MM screening sarah BI w rommel HISTORY: Screening mammogram TECHNIQUE: Craniocaudal and mediolateral oblique 3-D tomosynthesis images were obtained and synthetic 2-D images were generated. CAD analysis was submitted and interpreted. COMPARISON: . 10/29/2020, 09/10/2019 bilateral screening mammogram examinations BREAST PARENCHYMAL COMPOSITION: There are scattered areas of fibroglandular density. FINDINGS: Scattered numerous bilateral benign calcifications are again noted. Chronic stable mild fib roglandular asymmetry. There is no evidence of suspicious mass, calcification, or architectural disto rtion to suggest malignancy in either breast. There has been no suspicious interval change. IMPRESSION: 1. No mammographic evidence of malignancy. 2. Recommend routine screening mammography in one year. BI-RADS Category 2: Benign finding(s). Reviewed, dictated and finalized at location A.
== END ==
PROVIDERS: PCP Internal Medicine; Visit Provider Internal Medicine
DX: Z12.31 Encounter for screening mammogram for malignant neoplasm of breast (principal)
CPT/HCPCS: 77063; 77067

== ENCOUNTER 2022-05-06 08:26 | Emergency (ER) | payer MEDICARE, OTHER, SELFPAY ==
[2022-05-06 08:39] VITALS: BP 147/70; PULSE 85; RESP 16; TEMP 36.9; O2SAT 99
--- NOTE | 2022-05-06 08:58 | ED.GENADULT ---
HPI - General Adult General Chief complaint: Upper Respiratory Infection Stated complaint: Sinus Source: patient Mode of arrival: ambulatory Limitations: no limitations History of Present Illness HPI narrative: Patient presents for evaluation of sinus symptoms for the past 4 days. Symptoms include sinus congestion, pressure, mucopurulent discharge from the nares, and headache. No fever, chills, nausea, vomiting, diarrhea, cough. Her is currently hospitalized for respiratory symptoms. No additional complaints or concerns. Related Data Home Medications Medication Instructions Recorded Confirmed calcium polycarbophil 625 mg 1,250 mg PO BID 04/24/19 05/06/22 tablet (FiberCon) conjugated estrogens 0.625 mg/gram 0.625 mg vaginal DAILY 04/24/19 05/06/22 vaginal cream (Premarin) fexofenadine 180 mg tablet 180 mg PO DAILY 04/24/19 05/06/22 (Livia Allergy) lysine 500 mg tablet 500 mg PO DAILY 04/24/19 05/06/22 multivitamin 1 tablet PO DAILY 04/24/19 05/06/22 solifenacin 5 mg tablet (Vesicare) 5 mg PO DAILY 04/24/19 05/06/22 vit C 250 mg-vit E 90 mg-zinc 40 1 tablet PO BID 04/24/19 05/06/22 mg-copper 1 [id number]-[id number] capsule (PreserVision AREDS-2) famotidine 10 mg tablet 20 mg PO DAILY 11/24/20 05/06/22 mecobalamin (vitamin B12) 1,000 1,000 mcg sublingual DAILY 11/24/20 05/06/22 mcg disintegrating tablet,sublingual omega-3 fatty acids-fish oil 360 1 cap PO BID 11/24/20 05/06/22 mg-1,200 mg capsule (Fish Oil) polyethylene glycol 3350 17 17 g PO DAILY 11/24/20 05/06/22 gram/dose oral powder (Miralax) cephalexin 500 mg capsule 500 mg PO DAILY PRN 3 months 04/11/21 05/06/22 Allergies Allergy/AdvReac Type Severity Reaction Status Date / Time Sulfa (Sulfonamide Allergy Unknown Rash Verified 05/06/22 08:37 Antibiotics) tramadol Allergy Unknown Chest Pain Verified 05/06/22 08:37 nitroglycerin AdvReac Unknown Hypotension Verified 05/06/22 08:37 Review of Systems Review of Systems: CONSTITUTIONAL: Denies fever, chills, or sweats. EYES: Denies visual changes, redness, or discharge. ENT: Reports sinus congestion, mucopurulent discharge from nares and sinus pressure CARDIOVASCULAR: Denies chest pain, palpitations, or edema. RESPIRATORY: Denies cough or dyspnea. GASTROINTESTINAL: Denies abdominal pain, nausea, vomiting, or diarrhea. GENITOURINARY: Denies dysuria or hematuria. SKIN: Denies rash or itching. MUSCULOSKELETAL: Denies back pain, joint pain, or myalgia. NEUROLOGIC: Reports headache. Denies numbness, dizziness, or weakness. PSYCHIATRIC: Denies anxiety or depression. [facility] Past Medical History Medical History Benign essential hypertension BMI 22.0-22.9, adult BMI 23.0-23.9, adult BMI 24.0-24.9, adult Breast tenderness in female Canker sores oral Carotid bruit Chronic cough Colon cancer screening Ear congestion Encounter for general adult medical examination w/o abnormal findings Encounter for Medicare annual wellness exam Family history of diabetes mellitus Follow up Frequent UTI Hair loss Hearing loss Heart palpitations Hormone replacement therapy (HRT) Hot flashes Hyperlipidemia Hyponatremia Hypothyroidism (acquired) Left hip pain Left upper quadrant pain Low back pain Lung nodule Nasal septal deviation 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
== END 2022-05-06 09:06 | disposition home or self-care (01) ==
PROVIDERS: Emergency Provider Nurse Practitioner; PCP Internal Medicine
DX: J32.9 Chronic sinusitis, unspecified (principal); Z87.891 Personal history of nicotine dependence; I10 Essential (primary) hypertension; E78.5 Hyperlipidemia, unspecified; E03.9 Hypothyroidism, unspecified; E53.8 Deficiency of other specified B group vitamins
CPT/HCPCS: 99213; G0463

== ENCOUNTER 2022-09-26 11:25 | Emergency (ER) | payer MEDICARE, OTHER, SELFPAY ==
[2022-09-26 12:20] VITALS: BP 183/82; PULSE 77; RESP 19; TEMP 36.1; O2SAT 99
--- NOTE | 2022-09-26 12:49 | ED.WOUNDLAC ---
HPI - Wound/Laceration General Chief Complaint: Wound/Laceration Stated Complaint: skin tear lt arm Time Seen by Provider: 09/26/22 12:49 Source: patient, RN notes reviewed and old records reviewed Mode of arrival: ambulatory Limitations: no limitations History of Present Illness HPI narrative: 82 year old female presents to [facility] care with complaints of skin tear to the anterior aspect of her left distal forearm which occurred his morning around 1000 when her purse slipped off her shoulder and scrapped her arm. Patient has applied Telfa dressing and wrapped with duke wrap after cleansing with soap and water. Patient has 2cm by 2cm skin tear to left forearm with skin bruised no active bleeding at this time or acute pain. Patient is presently taking Cephalexin for UTI for a 7 day duration. Onset (ago): hour(s) (1000 today) Location: other (left distal anterior forearm) Extremity Location: Left: forearm (anterior distal aspect) Patient tetanus UTD: Yes Treatments prior to arrival: bandage and other (cleansed with soap and water) Related Data Home Medications Medication Instructions Recorded Confirmed conjugated estrogens 0.625 mg/gram 0.625 mg vaginal DAILY 04/24/19 09/26/22 vaginal cream (Premarin) fexofenadine 180 mg tablet 180 mg PO DAILY 04/24/19 09/26/22 (Livia Allergy) lysine 500 mg tablet 500 mg PO DAILY 04/24/19 05/30/22 multivitamin 1 tablet PO DAILY 04/24/19 05/30/22 solifenacin 5 mg tablet (Vesicare) 5 mg PO DAILY 04/24/19 05/30/22 vit C 250 mg-vit E 90 mg-zinc 40 1 tablet PO BID 04/24/19 05/30/22 mg-copper 1 [id number]-[id number] capsule (PreserVision AREDS-2) famotidine 10 mg tablet 20 mg PO DAILY 11/24/20 09/26/22 mecobalamin (vitamin B12) 1,000 1,000 mcg sublingual DAILY 11/24/20 05/30/22 mcg disintegrating tablet,sublingual omega-3 fatty acids-fish oil 360 1 cap PO BID 11/24/20 05/30/22 mg-1,200 mg capsule (Fish Oil) polyethylene glycol 3350 17 17 g PO DAILY 11/24/20 05/30/22 gram/dose oral powder (Miralax) cephalexin 500 mg capsule 500 mg PO DAILY PRN 3 months 04/11/21 09/26/22 Allergies Allergy/AdvReac Type Severity Reaction Status Date / Time Sulfa (Sulfonamide Allergy Unknown Rash Verified 09/26/22 12:42 Antibiotics) tramadol Allergy Unknown Chest Pain Verified 09/26/22 12:42 nitroglycerin AdvReac Unknown Hypotension Verified 09/26/22 12:42 Review of Systems Review of Systems: CONSTITUTIONAL: Denies fever, chills, or sweats. EYES: Denies visual changes, redness, or discharge. ENT: Denies rhinorrhea, congestion, sore throat, or otalgia. CARDIOVASCULAR: Denies chest pain, palpitations, or edema. RESPIRATORY: Denies cough or dyspnea. GASTROINTESTINAL: Denies abdominal pain, nausea, vomiting, or diarrhea. GENITOURINARY: Denies dysuria or hematuria. SKIN: Denies rash or itching. skin tear to left distal anterior forearm, bleeding controlled MUSCULOSKELETAL: Denies back pain, joint pain, or myalgia. NEUROLOGIC: Denies headache, numbness, or weakness. PSYCHIATRIC: Positive for history of anxiety or depression. All systems reviewed & are unremarkable except as noted in HPI and below PMFSH Past Medical History Medical History Benign essential hypertension BMI 22.0-22.9, adult BMI 23.0-23.9, adult BMI 24.0-24.9, adult Breast tenderness in female Canker sores oral Carotid bruit Chronic cough Colon cancer screening Ear congestion Encounter for general adult medical examination w/o abnormal findings Encounter for Medicare annual wellness exam Family history of diabetes mellitus Follow up Frequent UTI Hair loss Hearing loss Heart palpitations Hormone replacement therapy (HRT) Hot flashes Hyperlipidemia Hyponatremia Hypothyroidism (acquired) Left hip pain Left upper quadrant pain Low back pain Lung nodule Nasal septal deviation 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
== END 2022-09-26 13:14 | disposition home or self-care (01) ==
PROVIDERS: Emergency Provider Registered Nurse; PCP Internal Medicine
DX: S51.812A Laceration without foreign body of left forearm, initial encounter (principal); W45.8XXA Other foreign body or object entering through skin, initial encounter; Z87.891 Personal history of nicotine dependence; I10 Essential (primary) hypertension; E78.5 Hyperlipidemia, unspecified; E03.9 Hypothyroidism, unspecified
CPT/HCPCS: 99213; G0463

== ENCOUNTER 2022-11-27 10:35 | Emergency (ER) | payer MEDICARE, OTHER, SELFPAY ==
[2022-11-27 10:56] VITALS: BP 144/86; PULSE 73; RESP 16; TEMP 36.6; O2SAT 98
--- NOTE | 2022-11-27 11:22 | ED.URI ---
HPI - URI/Sore Throat General Chief Complaint: Upper Respiratory Infection Stated Complaint: sore throat Source: patient and RN notes reviewed History of Present Illness HPI Narrative: 82 yo F presents to urgent care with complaints of a sore throat when she eats food. PT states this has been going on for the last 5 days or so. Pt denies any pain with swallowing fluids or just at rest. Does report some nasal drainage and congestion. Denies any fevers, chills, MURILLO, SOB, chest pain, vomiting, or diarrhea. Related Data Home Medications Medication Instructions Recorded Confirmed conjugated estrogens 0.625 mg/gram 0.625 mg vaginal DAILY 04/24/19 11/27/22 vaginal cream (Premarin) fexofenadine 180 mg tablet 180 mg PO DAILY 04/24/19 11/27/22 (Livia Allergy) lysine 500 mg tablet 500 mg PO DAILY 04/24/19 11/27/22 multivitamin 1 tablet PO DAILY 04/24/19 11/27/22 solifenacin 5 mg tablet (Vesicare) 5 mg PO DAILY 04/24/19 11/27/22 vit C 250 mg-vit E 90 mg-zinc 40 1 tablet PO BID 04/24/19 11/27/22 mg-copper 1 [id number]-[id number] capsule (PreserVision AREDS-2) famotidine 10 mg tablet 20 mg PO DAILY 11/24/20 11/27/22 mecobalamin (vitamin B12) 1,000 1,000 mcg sublingual DAILY 11/24/20 11/27/22 mcg disintegrating tablet,sublingual omega-3 fatty acids-fish oil 360 1 cap PO BID 11/24/20 11/27/22 mg-1,200 mg capsule (Fish Oil) polyethylene glycol 3350 17 17 g PO DAILY 11/24/20 11/27/22 gram/dose oral powder (Miralax) Allergies Allergy/AdvReac Type Severity Reaction Status Date / Time Sulfa (Sulfonamide Allergy Unknown Rash Verified 11/27/22 11:33 Antibiotics) tramadol Allergy Unknown Chest Pain Verified 11/27/22 11:33 nitroglycerin AdvReac Unknown Hypotension Verified 11/27/22 11:33 Review of Systems Review of Systems: CONSTITUTIONAL: Denies fever, chills, or sweats. EYES: Denies visual changes, redness, or discharge. ENT: sore throat CARDIOVASCULAR: Denies chest pain, palpitations, or edema. RESPIRATORY: Denies cough or dyspnea. GASTROINTESTINAL: Denies abdominal pain, nausea, vomiting, or diarrhea. GENITOURINARY: Denies dysuria or hematuria. SKIN: Denies rash or itching. MUSCULOSKELETAL: Denies back pain, joint pain, or myalgia. NEUROLOGIC: Denies headache, numbness, or weakness. Pertinent positives per HPI. [facility] Past Medical History Medical History Benign essential hypertension BMI 22.0-22.9, adult BMI 23.0-23.9, adult BMI 24.0-24.9, adult Breast tenderness in female Canker sores oral Carotid bruit Chronic cough Colon cancer screening Ear congestion Encounter for general adult medical examination w/o abnormal findings Encounter for Medicare annual wellness exam Family history of diabetes mellitus Follow up Frequent UTI Hair loss Hearing loss Heart palpitations Hormone replacement therapy (HRT) Hot flashes Hyperlipidemia Hyponatremia Hypothyroidism (acquired) Left hip pain Left upper quadrant pain Low back pain Lung nodule Nasal septal deviation On shelter drug therapy Overactive bladder Pain of left breast Post-nasal drainage Pre-diabetes Rash Sinus symptom Tenderness of left axilla Vitamin B12 deficiency Vitamin D deficiency Surgical History Surgical History History of bladder surgery Family History Family History Mother Family history of osteoporosis Sibling Family history of cardiac disorder Father Family history of coronary artery disease Acute myocardial infarction Other Family history of arthritis Hypertension Social History Social History Smoking packs per day: 0.5 Smoking cigarettes per day: 10.0 Years smoked: 20 Smoking pack-years: 10.00 Smoking status: Never smoker Tobacco type: cigarettes Second hand tobacco
== END 2022-11-27 11:36 | disposition home or self-care (01) ==
PROVIDERS: Emergency Provider Nurse Practitioner Family
DX: K12.0 Recurrent oral aphthae (principal); Z87.891 Personal history of nicotine dependence; I10 Essential (primary) hypertension; E78.5 Hyperlipidemia, unspecified; E03.9 Hypothyroidism, unspecified; R73.03 Prediabetes; E53.8 Deficiency of other specified B group vitamins
CPT/HCPCS: 87081; 87880; 99213; G0463

== ENCOUNTER → 2023-05-11 15:15 | Outpatient (CLI) | payer MEDICARE, OTHER, SELFPAY ==
--- NOTE | ~2023-05-11 | CT_ITS ---
EXAMINATION: CT abdomen pelvis w con DATE: 05/11/2023 15:45 INDICATION: Intra-abdominal and pelvic swelling. TECHNIQUE: Computed tomography (CT) of the abdomen and pelvis was performed with 100 mL Omnipaque 350 intravenous contrast. Automated exposure control and iterative reconstruction technique were employe d. The dose-length product was 348.56 mGy-cm. COMPARISON: CT abdomen 01/17/2017 FINDINGS: The visualized portions of the lung bases demonstrate mild atelectasis. No pleural effusion . The heart size is normal. No pericardial effusion. The liver, gallbladder, spleen, pancreas, and ad renal glands are normal. There is cortical thinning of the kidneys. There are cysts in the kidneys me asuring up to 13 mm in the left. There are no dilated loops of bowel. There are no pathologically enl arged lymph nodes. There is no free intraperitoneal fluid. Aortic atherosclerosis is noted. There is lumbar levocurvature and mild spondylosis. IMPRESSION: 1. No etiology for the patient's symptoms. Reviewed, dictated and finalized at location E. [employer]
[2023-05-11 15:35] LABS: Estimated Glomerular Filt Rate > 60
== END ==
PROVIDERS: PCP Internal Medicine; Visit Provider Internal Medicine
DX: R19.00 Intra-abdominal and pelvic swelling, mass and lump, unspecified site (principal); R10.9 Unspecified abdominal pain
CPT/HCPCS: 74177; Q9967

== ENCOUNTER 2023-07-06 10:24 | Outpatient (CLI) | payer MEDICARE, OTHER, SELFPAY | END 2023-07-06 10:25 | disposition home or self-care (01) | LOC: ANHSURGERY 10:31 | PROVIDERS: PCP Internal Medicine; Visit Provider Surgery | DX: Z01.812 Encounter for preprocedural laboratory examination (principal); K43.2 Incisional hernia without obstruction or gangrene | CPT/HCPCS: 36415; 86850; 86900; 86901 ==

== ENCOUNTER 2023-07-12 13:03 | Outpatient (CLI) | payer MEDICARE, OTHER, SELFPAY ==
[2023-07-12 14:26] LABS: Appearance Urine Clear (Clear); Bilirubin Urine Negative (Negative); Blood Urine Negative (Negative); Color Urine Yellow (Yellow); Glucose Urine UA Negative (Negative); Ketones Urine Negative (Negative); Leukocyte Esterase Ur Negative LEU/UL (Negative); Nitrate Urine Negative (Negative); Protein Urine Negative (Negative); Specific Grav Ur 1.005 (1.001-1.035); Urobilinogen Urine 0.2 mg/dL (<2.0)
[2023-07-12 14:35] LABS: Add Urine Microscopic? NO
== END 2023-07-12 13:04 | disposition home or self-care (01) ==
LOC: ANHLAB 13:05
PROVIDERS: Visit Provider Surgery
DX: N39.0 Urinary tract infection, site not specified (principal)
CPT/HCPCS: 81003

== ENCOUNTER → 2023-07-12 13:34 | Outpatient (CLI) | payer MEDICARE, OTHER, SELFPAY ==
--- NOTE | ~2023-07-12 | MM_ITS ---
EXAMINATION: MM screening sarah BI w rommel HISTORY: Screening mammogram TECHNIQUE: Craniocaudal and mediolateral oblique 3-D tomosynthesis images were obtained and synthetic 2-D images were generated. CAD analysis was submitted and interpreted. COMPARISON: 02/13/2022, 10/29/2020 bilateral screening mammogram examinations BREAST PARENCHYMAL COMPOSITION: There are scattered areas of fibroglandular density. FINDINGS: Numerous bilateral benign calcifications are again noted. There is no evidence of suspiciou s mass, calcification, or architectural distortion to suggest malignancy in either breast. There has been no suspicious interval change. IMPRESSION: 1. No mammographic evidence of malignancy. 2. Recommend routine screening mammography in one year. BI-RADS Category 2: Benign finding(s). Reviewed, dictated and finalized at location A. [employer]
== END ==
PROVIDERS: PCP Internal Medicine; Visit Provider Internal Medicine
DX: Z12.31 Encounter for screening mammogram for malignant neoplasm of breast (principal)
CPT/HCPCS: 77063; 77067

== ENCOUNTER 2023-07-13 00:30 | Day surgery (SDC) | payer MEDICARE, OTHER, SELFPAY ==
--- NOTE | 2023-07-02 14:57 | PC.NURSE ---
Report to the Outpatient Waiting Room, entrance under the green pavilion located off [facility], at time _0600 on date __07/13/23 . Planned Procedure Time: 0730 . Time changes happen often and if your time is changed the preop area will call you the afternoon before. - You and your visitor will be asked to self-screen and do not enter if you have any COVID symptoms. - A mask is optional within the hospital at this time. Patients may have clear liquids (water, carbonated beverages, clear teas, apple juice) until 3 hours prior to surgery( 4:30 AM) with a maximum of 20 ounces. - No food from midnight until time of surgery - Infants may have breast milk until 4 hours before surgery, infant formula 6 hours prior to surgery. - Children will be allowed to drink immediately following surgery. If applicable, please bring a bottle or sippy cup to assist with drinking. Juice, water, soda, and popsicles are readily available. For infants on formula, please bring formula the day of surgery. Pacifiers are allowed. Take the following medications with a SIP of water the morning of surgery: _AMLODIPINE,LEVOTHYROXINE, DO NOT STOP ANY OF YOUR OTHER PRESCRIPTION MEDICATIONS PRIOR TO SURGERY ?EXCEPT THE FOLLOWING Medications to discontinue per physician ___ALL VITAMINS AND SUPPLEMENTS 3 DAYS PRE OP.LAST DOSE 07/09/23 Please no make-up, nail chadian, hairspray, perfume, deodorant, or body powder the day of surgery. No jewelry (including any body piercings) or valuables the day of surgery, leave them at home. Please take a shower or bath the night before, or the morning of, surgery with an antibacterial soap. Wear comfortable, loose fitting clothing. Children are encouraged to wear pajamas. - Jewelry must be removed prior to entering the operating room. Rings and piercings that are not removed may be cut off. - The hospital will not accept responsibility for valuables. - Please leave all valuables, including medications, at home the day of surgery. If you are going home after surgery, a licensed bulk delivery driver must drive you home. - NO public transportation without another adult if you receive anesthesia. - We recommend that an adult stay with you for 24 hours following discharge. - We also recommend that you do not drive, make important decision, drink alcoholic beverages, or take any drugs that were not prescribed by your health care provider for at least 24 hours after your discharge t Follow any additional instructions given to you from your surgeon. If you or anyone in your household have experienced Covid symptoms in the past week, please notify your surgeon or the nurse liaison at the phone number below for possible testing. Telephone instructions given to __PATIENT and asked if any additional questions and then verbalized understanding. Patient advised to call surgeon office or pre surgery nurse liaison [phone] if any additional questions.
[2023-07-02 15:11] VITALS: BMI 23.3
[2023-07-13] VITALS (15 sets, daily range): BP systolic 124–188; BP diastolic 53–99; PULSE 69–112; RESP 11–20; TEMP 36.1–36.6; O2SAT 95–98
[2023-07-13] MEDS: ACETAMINOPHEN 500 MG TABLET 1000 MG PO (06:20)
[2023-07-13] MEDS: KETOROLAC 15 MG/ML VIAL (*BKC) IV PUSH (06:53)
[2023-07-13] MEDS: LACTATED RINGERS 1,000 ML 30 ML IV CONT (06:53)
--- NOTE | 2023-07-13 06:59 | WPDANESEPPF ---
Anes - Initial Pre Proc Eval Procedure: Operation Date: 07/13/23 07:30 Proposed Procedures p Robotic Assisted Laparoscopic Lower Quadrant Right Abdominal Wall Incisional Hernia Repair, Possible Mesh Placement, Possible Open - Wil Bustos MD Date/Time: 07/13/23 06:59 Surgeon: Wil Bustos MD Pre Op Diagnosis: RtLQuad Abd Wall Incisional Hernia, Reducible Patient Data Age: 83 Gender: F Height: 1.65 m Weight: 61.9 kg Last Vital Signs Temp 36.4 C 07/13/23 06:45 Pulse 69 07/13/23 06:45 Resp 16 07/13/23 06:45 BP 188/78 H 07/13/23 06:45 Pulse Ox 97 07/13/23 06:45 O2 Del Method Room Air 07/13/23 06:45 Allergies Allergy/AdvReac Type Severity Reaction Status Date / Time Sulfa (Sulfonamide Allergy Unknown Rash Verified 07/13/23 06:15 Antibiotics) tramadol Allergy Unknown Chest Pain Verified 07/13/23 06:15 nitroglycerin AdvReac Unknown Hypotension Verified 07/13/23 06:15 Home Medications Medication Instructions Recorded Confirmed Type conjugated estrogens 0.625 mg/gram 0.625 mg vaginal DAILY 04/24/19 07/13/23 History vaginal cream (Premarin) fexofenadine 180 mg tablet 180 mg PO DAILY 04/24/19 07/13/23 History (Livia Allergy) lysine 500 mg tablet 500 mg PO DAILY 04/24/19 07/13/23 History multivitamin 1 tablet PO DAILY 04/24/19 07/13/23 History solifenacin 5 mg tablet (Vesicare) 5 mg PO DAILY 04/24/19 07/13/23 History vit C 250 mg-vit E 90 mg-zinc 40 1 tablet PO BID 04/24/19 07/13/23 History mg-copper 1 [id number]-[id number] capsule (PreserVision AREDS-2) magnesium chloride 71.5 mg 71.5 mg PO BID #60 tabs 04/13/20 07/13/23 Rx (magnesium chloride) tablet,delayed release (Slow-Mag) famotidine 10 mg tablet 20 mg PO DAILY 11/24/20 07/13/23 History mecobalamin (vitamin B12) 1,000 1,000 mcg PO DAILY 11/24/20 07/13/23 History mcg disintegrating tablet,sublingual omega-3 fatty acids-fish oil 360 1 cap PO BID 11/24/20 07/13/23 History mg-1,200 mg capsule (Fish Oil) polyethylene glycol 3350 17 17 g PO PRN PRN Constipation 11/24/20 07/13/23 History gram/dose oral powder (Miralax) azelastine 137 mcg (0.1 %) nasal 1 spray intranasal Q12H #30 mL 10/10/22 07/13/23 Rx spray aerosol amlodipine 5 mg tablet See Rx Instructions .Route 02/20/23 07/13/23 Rx .COMPLEX #90 tabs fluticasone propionate 50 See Rx Instructions .Route 02/20/23 07/13/23 Rx mcg/actuation nasal .COMPLEX #48 grams spray,suspension valacyclovir 1 gram tablet 1,000 mg PO DAILY #12 tabs 06/06/23 07/13/23 Rx ascorbic acid (vitamin C) 1,000 mg 1 g PO DAILY 07/02/23 07/13/23 History tablet cephalexin 500 mg tablet 500 mg PO PRN PRN UTI 07/02/23 07/13/23 History lidocaine 5 % topical patch 1 patch topical DAILY 07/02/23 07/13/23 History bupropion HCl 150 mg 24 hr tablet, See Rx Instructions .Route 07/04/23 07/13/23 Rx extended release .COMPLEX HOT FLASHES #90 tabs desonide 0.05 % topical cream 1 applic topical PRN PRN Itching 07/04/23 07/13/23 Rx #15 grams levothyroxine 88 mcg tablet See Rx Instructions .Route 07/04/23 07/13/23 Rx .COMPLEX #90 tabs lisinopril 40 mg tablet See Rx Instructions .Route 07/04/23 07/13/23 Rx .COMPLEX #135 tabs simvastatin 20 mg tablet See Rx Instructions .Route 07/04/23 07/13/23 Rx .COMPLEX #90 tabs Patient hx anesthesia problems: none Family hx anesthesia problems: none Results Review: All pre-operative results and documents have been reviewed as part of the pre-operative evaluation. [facility] Past Medical History Medical History Abdominal hernia Benign essential hypertension BMI 22.0-22.9, adult BMI 23.0-23.9, adult BMI 24.0-24.9, adult Breast tenderness in female Canker sores oral Carotid bruit Chronic cough Colon cancer screening Ear congestion Encounter for general adult medical examination w/o abnormal findings Encounter for Medicare annual wellness exam Family history of diabet
--- NOTE | 2023-07-13 07:24 | PM.IMHP ---
H&P: HPI History of Present Illness Date/Time: 07/13/23 07:24 Chief Complaint: RLQ abd wall pain Narrative: Ms. Jara presents today at the request of Dr. Jack for evaluation.? She has a approximately 3 months history of right-sided abdominal bulging at the scar from her bladder lift by Dr. Salgado in 2011.? A abdominal bulge, possible hernia is noted on exam by Dr. Jack. ? She was sent for a CT which was negative. denies associated pain. Review of Systems Review of Systems: The remainder of the review of systems to include constitutional, HEENT, cardiovascular, respiratory, GI, , integumentary, musculoskeletal, endocrine, immunologic, hematologic, psychiatric, and neurologic are all negative except for which is mentioned above in the HPI. [facility] Past Medical History Medical History Abdominal hernia Benign essential hypertension BMI 22.0-22.9, adult BMI 23.0-23.9, adult BMI 24.0-24.9, adult Breast tenderness in female Canker sores oral Carotid bruit Chronic cough Colon cancer screening Ear congestion Encounter for general adult medical examination w/o abnormal findings Encounter for Medicare annual wellness exam Family history of diabetes mellitus Follow up Frequent UTI Hair loss Hearing loss Heart palpitations Hormone replacement therapy (HRT) Hot flashes Hyperlipidemia Hyponatremia Hypothyroidism (acquired) Left hip pain Left upper quadrant pain Low back pain Lung nodule Nasal septal deviation On emt intermediate drug therapy Overactive bladder Pain of left breast Post-nasal drainage Pre-diabetes Rash Sinus symptom Tenderness of left axilla Vitamin B12 deficiency Vitamin D deficiency Surgical History Surgical History History of bladder surgery Family History Family History Mother Family history of osteoporosis Sibling Family history of cardiac disorder Father Family history of coronary artery disease Acute myocardial infarction Other Family history of arthritis Hypertension Social History Social History Smoking packs per day: 0.5 Smoking cigarettes per day: 10.0 Years smoked: 20 Smoking pack-years: 10.00 Smoking status: Former smoker Tobacco type: cigarettes Second hand tobacco smoke exposure: No Smoking end date: 06/04/98 Alcohol intake: never Substance use: never Substance use type: does not use Lack of Transportation: No Lack of Food: Never True Current Housing: I Have Housing Concerned About Future Housing: No Difficulty Paying Gas/Electric Bills: No Difficulty Paying for Meds: No Currently Unemployed: No Education: Master's Degree or Higher Difficulty w/ Childcare or Family Care: No Living arrangements: with family Gender identity (if verbalized by the patient): Female Spiritual care concerns: No Meds Home Medications and Allergies Home Medications Medication Instructions Recorded Confirmed Type conjugated estrogens 0.625 mg/gram 0.625 mg vaginal DAILY 04/24/19 07/13/23 History vaginal cream (Premarin) fexofenadine 180 mg tablet 180 mg PO DAILY 04/24/19 07/13/23 History (Livia Allergy) lysine 500 mg tablet 500 mg PO DAILY 04/24/19 07/13/23 History multivitamin 1 tablet PO DAILY 04/24/19 07/13/23 History solifenacin 5 mg tablet (Vesicare) 5 mg PO DAILY 04/24/19 07/13/23 History vit C 250 mg-vit E 90 mg-zinc 40 1 tablet PO BID 04/24/19 07/13/23 History mg-copper 1 [id number]-xiapxi-[id number] capsule (PreserVision AREDS-2) magnesium chloride 71.5 mg 71.5 mg PO BID #60 tabs 04/13/20 07/13/23 Rx (magnesium chloride) tablet,delayed release (Slow-Mag) famotidine 10 mg tablet 20 mg PO DAILY 11/24/20 07/13/23 History mecobalamin (vitamin B12) 1,000 1,000 mcg PO DAILY 11/24/20 07/13/23 History mcg disintegra
--- NOTE | 2023-07-13 07:29 | WPDHPUPDATE1 ---
History and Physical Update Update Date/Time: 07/13/23 07:29 History and Physical has been reviewed, including an updated exam of the patient. There are NO changes in the patient's condition. Risks, benefits, and alternatives have been discussed and questions answered. Patient agrees to proceed with procedure.
[2023-07-13] MEDS: ceFAZolin 2 GM/D5W 50 ML 2 GM/50 ML BAG IVPB (07:36)
[2023-07-13] MEDS: LIDO 1%/EPINEPHRINE 1:100,000 50 ML VIAL 60 ML INFILTRATE (08:46)
--- NOTE | 2023-07-13 12:25 | PM.OP ---
Procedure Note - Brief Procedure Note - Brief Date of procedure: 07/13/23 RtLQuad Abd Wall Incisional Hernia, Reducible Post-op diagnosis: Other (Right lower quadrant port site abdominal wall incisional hernia, extensive intra-abdominal adhesions) Procedure performed: Robotic assisted laparoscopic right lower quadrant incisional transabdominal preperitoneal (STEPHON) hernia repair with Bard soft mesh and extensive laparoscopic abdominal adhesiolysis Surgeon: Wil Bustos MD Transportation Escort: MAYRA Miller Anesthesia: GETA Implants: 6x6cm Bard soft mesh placed in preperitoneal plane Estimated blood loss (mL): 25 Drains: No Packing: No Pathology: None sent Complications: No immediate complications Condition: Stable Disposition: PACU
[2023-07-13] MEDS: buPROPion HCL XL (24 HR) 150 MG TABCR BY MOUTH (17:32)
[2023-07-13] MEDS: OMEGA 3 POLYUNSAT FATTY ACIDS 1 GM CAP PO (17:32)
[2023-07-13] MEDS: OPTI-GEN TAB 1 TABLET PO (17:32)
[2023-07-13] MEDS: lisinopriL 20 MG TABLET BY MOUTH (17:32)
[2023-07-13] MEDS: MAGNESIUM CHLORIDE 64 MG TABLET PO (17:32)
[2023-07-13] MEDS: HYDROcodone/acetaminophen (*CRX) 5-325 MG TABLET 1 TAB PO (18:48)
--- NOTE | 2023-07-13 20:09 | W.PM.PROC2 ---
Procedure Note - Detailed Date of Procedure 07/13/23 Pre-op Diagnosis RtLQuad Abd Wall Incisional Hernia, Reducible Post-op Diagnosis Same ( Right lower quadrant port site incisional hernia, extensive abdominal adhesions of small bowel and colon to abdominal wall.) Procedure Performed Robotic assisted laparoscopic right lower quadrant incisional port site hernia repair with transabdominal preperitoneal (STEPHON) mesh placement of Bard soft mesh, extensive small bowel and colonic adhesiolysis off of the abdominal wall. Surgeon Wil Bustos MD Prop And Scenery Maker Paulo Khan BUDGET REPORT CLERK Anesthesia General Indications patient is an 83-year-old female who previously had a bladder suspension robotically by a urologist. In the right lower quadrant of the abdominal wall were a port was placed previously there appears to be a port site incisional hernia which is causing bulging and pain for the patient. She presents now for robotic assisted laparoscopic repair of the hernia with mesh. Findings Upon entering the abdomen the patient had copious adhesions of the small bowel and colon to the right lower quadrant abdominal wall. After extensive he adhesiolysis of approximately1.5hours which doubled the time of surgery I was finally able to free all several loops of small bowel and the ascending right colon off of the abdominal wall so I could identify the small port site hernia defect. The defect measured 2x1cm. No enterotomies made in the bowel, however 2 serosal tears were made in the serosa to the ascending colon which were not full-thickness so there was no spillage of any enteric contents into the abdomen. Both of these serosal tears were repaired utilizing 2-0 Vicryl sutures followed by imbricating the repairs with a running 3-0 absorbable V lock suture. The serosal repairs were reported to the patient's family but her not expected to significantly impact the patient's course of recovery. Description of Procedure After informed consent was obtained patient brought to the operating room where she was placed supine position and general endotracheal anesthesia was administered. A Gleason catheter was placed decompress the bladder. A time-out was then performed correctly identifying the patient as well as procedure to be performed verifying that she was given perioperative IV antibiotics. I then proceeded to place a 10mm left upper quadrant trocar port with direct Optiview insertion. Once inside the abdomen insufflated to adequate pneumoperitoneum of 15mmHg of CO2. Looking into the right lower quadrant the abdomen I could see multiple loops of small bowel and colon. To the right lower quadrant of the abdominal wall and the right lateral abdominal wall. I then placed additional robotic trocar ports along the left lateral abdominal wall under direct visualization. The Click With Me Now robot was then brought to the patient's bedside and docked with the robotic arms being attached the robotic ports. Robotic instruments were then advanced into the abdomen under direct visualization. I then scrubbed out the procedure sent down at the robotic console to perform the adhesiolysis of the bowel off of the abdominal wall. Sharp robotic dissection with energized zara was performed to perform adhesiolysis of the small bowel off of the anterior abdominal wall. I then found the right ascending colon also very adherent to the lateral abdominal wall. I spent about 1.5hours performing adhesiolysis robotically which easily doubled the time of the surgery for this type particular procedure. There were 2 serosal tears to the ascending colon which were quickly identified at the time they occurred. No formal enterotomy was made there was no spillage of any enteric contents. Both of these defects were repaired utilizing 2-0 Vicryl sutures to approximate close the serosal tears and then they were imbricated utilizing a running 3-0 absorbable V lock suture. After taking down all these adhesions I final
[2023-07-13] MEDS: AZELASTINE HCL NASAL 0.1% 137 MCG/SPR 30 ML BTL 1 SPRAY NASAL (20:20)
[2023-07-14] VITALS: PULSE 65
[2023-07-14 00:03] LABS: Appearance Urine Cloudy (Clear); Bacteria Urine 3+ /hpf; Bilirubin Urine Negative (Negative); Blood Urine Negative (Negative); Color Urine Yellow (Yellow); Glucose Urine UA Negative (Negative); Ketones Urine Negative (Negative); Leukocyte Esterase Ur 2+ LEU/UL (NEGATIVE); Need Manual Microscopic Reviewed; Nitrate Urine Negative (Negative); Protein Urine Negative (Negative); RBC Urine 0-2 /hpf (0-2); Specific Grav Ur 1.012 (1.001-1.035); Squamous Epithelial Cell Urine Many /hpf (Few); Urobilinogen Urine 0.2 mg/dL (<2.0); WBC Urine 21-50 /hpf (0-3); pH Urine 6.5 (5.0-9.0)
[2023-07-14 00:04] LABS: Add Urine Microscopic? YES
[2023-07-14 04:00] VITALS: PULSE 64
[2023-07-14] MEDS: LEVOTHYROXINE SODIUM 88 MCG TABLET BY MOUTH (05:42)
[2023-07-14 06:00] VITALS: BP 146/62; PULSE 66; RESP 18; TEMP 36.6; O2SAT 96
[2023-07-14 08:05] VITALS: PULSE 69
[2023-07-14] MEDS: ENOXAPARIN 40 MG/0.4 ML SYRINGE SUB-Q (08:07)
[2023-07-14] MEDS: lisinopriL 20 MG TABLET 40 MG BY MOUTH (08:08)
[2023-07-14] MEDS: MULTIVITAMINS THERAPEUTIC TAB (*BKC) 1 TABLET PO (08:08)
[2023-07-14] MEDS: OMEGA 3 POLYUNSAT FATTY ACIDS 1 GM CAP PO (08:08)
[2023-07-14] MEDS: CYANOCOBALAMIN 1,000 MCG TABLET 1000 MCG PO (08:08)
[2023-07-14] MEDS: MAGNESIUM CHLORIDE 64 MG TABLET PO (08:08)
[2023-07-14] MEDS: buPROPion HCL XL (24 HR) 150 MG TABCR BY MOUTH (08:08)
[2023-07-14] MEDS: OPTI-GEN TAB 1 TABLET PO (08:08)
[2023-07-14] MEDS: amLODIPine BESYLATE 5 MG TABLET BY MOUTH (08:08)
[2023-07-14] MEDS: LORATADINE 10 MG TABLET PO (08:08)
[2023-07-14] MEDS: FAMOTIDINE 20 MG TABLET PO (08:08)
[2023-07-14] MEDS: SOLIFENACIN 5 MG TABLET PO (08:09)
[2023-07-14] MEDS: ASCORBIC ACID 500 MG TABLET 1000 MG PO (08:09)
[2023-07-14] MEDS: AZELASTINE HCL NASAL 0.1% 137 MCG/SPR 30 ML BTL 1 SPRAY NASAL (08:10)
[2023-07-14] MEDS: FLUTICASONE PROPIONATE 0.05% NA SPR 16 GM BTL (*BKC) 2 SPRAY NASAL (08:10)
--- NOTE | 2023-07-14 10:08 | PM.DS ---
DS: Admitting Diagnosis Discharge Date 07/14/2023 Admitting Diagnosis Incisional hernia DS: Discharge Diagnosis Discharge Diagnosis (1) Other specified postprocedural states: Code(s): Z98.890 - Other specified postprocedural states Status: Acute (2) Encounter for follow-up examination after completed treatment for conditions other than malignant neoplasm: Code(s): Z09 - Encounter for follow-up examination after completed treatment for conditions other than malignant neoplasm Status: Acute (3) Postoperative urinary retention: Code(s): N99.89 - Other postprocedural complications and disorders of genitourinary system; R33.8 - Other retention of urine Status: Acute (4) Urinary tract infection: Code(s): N39.0 - Urinary tract infection, site not specified Status: Acute DS: Summary Hospital Course Reason for hospitalization: Incisional hernia Hospital Course: This is a an 83-year-old woman who presented for incisional hernia repair. She underwent robotic assisted laparoscopic right lower quadrant incisional hernia repair and extensive laparoscopic adhesiolysis by Dr. Bustos on 07/13/2023. Surgery was technically difficult due to the adhesions and took longer than expected. She did have some bradycardia during the surgery as well and decision was made to place patient in outpatient extended recovery for further monitoring and management. She remained hemodynamically stable postoperatively and no significant abnormalities were noted on telemetry. She did experience urinary retention overnight on 07/13/2023 and had to be straight cathed. A urinalysis was performed after her straight cath and this did show evidence of possible UTI. On 07/14/2023 she was urinating without difficulty. Her pain was well controlled and she was ambulating with minimal assistance. She was discharged on 07/14/2023. Status at Discharge Functional status at discharge: independent ambulation Overall status at discharge: patient is progressing back to baseline Time Spent with Patient Time attestation: Total time spent providing and/or coordinating discharge services: Time spent: Less than 30 minutes Exam Const: General: no acute distress and alert Resp: Effort & Inspection: normal respiratory effort Auscultation: clear to auscultation bilaterally Cardio: Rate: regular rate Rhythm: regular rhythm Heart sounds: S1 normal heart sound present and S2 normal heart sound present GI: Inspection: non-distended and incision (Intact with glue) GI Palp: Yes Soft to palpation and Yes Tenderness to palpation present (GI) (Incisional and right lower quadrant) Auscultation: normal bowel sounds DS: Data Data Completed and Pending Labs on day of discharge: Labs from last 24 hours 07/13/23 22:47 Urine Color Yellow Urine Appearance Cloudy H Urine pH 6.5 Ur Specific [place] 1.012 Urine Protein Negative Urine Glucose (UA) Negative Urine Ketones Negative Ur Blood (Man) Negative Urine Nitrate Negative Urine Bilirubin Negative Urine Urobilinogen 0.2 Ur Leukocyte Esterase 2+ H Add Ur Microanalysis Reviewed Urine RBC 0-2 Urine WBC 21-50 Ur Squamous Epith Cells Many H Urine Bacteria 3+ H Urine Casts 3-5 Discharge Plan Discharge Patient Disposition: Home, Self-Care Discharge Instructions: May discharge home when stable. Follow-up in the office with Dr. Bustos in 2 weeks. Patient to call [phone] for an appointment. No lifting more than 5 to 10 lb for 4 to 6 weeks. If abdominal binder is in place than where night and day for 2 weeks. May remove abdominal binder to shower. May shower 24hours after surgery but no soaking of the incisions under water for 2 weeks. Resume all home medications and a prescription for narcotic pain medications will be sent to the patient's pharmacy if needed. May use Tylenol and/or ibuprofen in addition to or in place of narcotic pain medications.
--- NOTE | 2023-07-14 10:55 | WPDANESPN ---
Anes - Prog Note Post-Op Date/Time: 07/14/23 10:55 Cardiovascular status: normal Respiratory status: normal Airway patency: baseline Mental status: baseline Post-Op hydration status: normal Vital Signs: Last Vital Signs Temp 97.9 F 07/14/23 06:00 Pulse 69 07/14/23 08:05 Resp 18 07/14/23 06:00 BP 146/62 H 07/14/23 06:00 Pulse Ox 96 07/14/23 06:00 O2 Del Method Room Air 07/14/23 08:05 O2 Flow Rate 8 07/13/23 11:43 Pain Score (VAS): 3 I/O: Intake & Output 07/13/23 07/14/23 07/14/23 23:59 07:59 15:59 Intake Total 472 250 120 Output Total 1400 800 Balance -928 250 -680 07/13/23 22:47 Urine Color Yellow Urine Appearance Cloudy H Urine pH 6.5 Ur Specific [place] 1.012 Urine Protein Negative Urine Glucose (UA) Negative Urine Ketones Negative Ur Blood (Man) Negative Urine Nitrate Negative Urine Bilirubin Negative Urine Urobilinogen 0.2 Ur Leukocyte Esterase 2+ H Add Ur Microanalysis Reviewed Urine RBC 0-2 Urine WBC 21-50 Ur Squamous Epith Cells Many H Urine Bacteria 3+ H Urine Casts 3-5 Post-procedural complaints: nausea and other (difficulty urinating. required straight cath X 1 last evening. voiding today without difficulty. mild sore throat.) Patient Feedback: Patient satisfied with anesthetic care. pt preparing for discharge at time of visit
== END 2023-07-14 11:11 | disposition home or self-care (01) ==
LOC: ANHSURGERY 06:04 → ANH3MEDSUR 13:51
PROVIDERS: PCP Internal Medicine; Visit Provider Surgery
PROC: (CPT 49591; principal; 2023-07-13 07:30)
DX: K43.2 Incisional hernia without obstruction or gangrene (principal); K66.0 Peritoneal adhesions (postprocedural) (postinfection); N99.89 Other postprocedural complications and disorders of genitourinary system; R33.8 Other retention of urine; R00.1 Bradycardia, unspecified; N39.0 Urinary tract infection, site not specified; K91.72 Accidental puncture and laceration of a digestive system organ or structure during other procedure; I10 Essential (primary) hypertension; E78.5 Hyperlipidemia, unspecified; E03.9 Hypothyroidism, unspecified; R73.03 Prediabetes; E53.8 Deficiency of other specified B group vitamins; Z79.890 Hormone replacement therapy; Z87.891 Personal history of nicotine dependence
CPT/HCPCS: 49591; 44238; S2900; 81001; A9270; C1781; J0330; J0461; J0690; J1100; J1596; J1650; J1885; J2250; J2371; J2405; J2704; J3010; J7120

== ENCOUNTER 2023-07-30 10:53 | Emergency (ER) | payer MEDICARE, OTHER, SELFPAY ==
[2023-07-30 11:34] VITALS: BP 149/86; PULSE 64; RESP 16; TEMP 36.8; O2SAT 97
--- NOTE | 2023-07-30 12:12 | ED.SKABFB ---
HPI - Skin/Abscess/Foreign Bdy General Chief complaint: Skin/Abscess/Foreign Body Stated complaint: Skin Irritation/Wound Time Seen by Provider: 07/30/23 11:59 Source: patient and RN notes reviewed Mode of arrival: ambulatory Limitations: no limitations History of Present Illness HPI narrative: Patient presents today complaining of a skin tear to her left wrist that was sustained last night at home. She has had wounds closed here to [facility] with Steri-Strips and wanted to come in for evaluation and treatment today. Believes she is up-to-date on her tetanus vaccine. Related Data Home Medications Medication Instructions Recorded Confirmed conjugated estrogens 0.625 mg/gram 0.625 mg vaginal DAILY 04/24/19 07/30/23 vaginal cream (Premarin) fexofenadine 180 mg tablet 180 mg PO DAILY 04/24/19 07/30/23 (Livia Allergy) lysine 500 mg tablet 500 mg PO DAILY 04/24/19 07/30/23 multivitamin 1 tablet PO DAILY 04/24/19 07/30/23 solifenacin 5 mg tablet (Vesicare) 5 mg PO DAILY 04/24/19 07/30/23 vit C 250 mg-vit E 90 mg-zinc 40 1 tablet PO BID 04/24/19 07/30/23 mg-copper 1 [id number]-gdfyrb-[id number] capsule (PreserVision AREDS-2) famotidine 10 mg tablet 20 mg PO DAILY 11/24/20 07/30/23 mecobalamin (vitamin B12) 1,000 1,000 mcg PO DAILY 11/24/20 07/30/23 mcg disintegrating tablet,sublingual omega-3 fatty acids-fish oil 360 1 cap PO BID 11/24/20 07/30/23 mg-1,200 mg capsule (Fish Oil) polyethylene glycol 3350 17 17 g PO PRN PRN Constipation 11/24/20 07/30/23 gram/dose oral powder (Miralax) ascorbic acid (vitamin C) 1,000 mg 1 g PO DAILY 07/02/23 07/30/23 tablet cephalexin 500 mg tablet 500 mg PO PRN PRN UTI 07/02/23 07/30/23 lidocaine 5 % topical patch 1 patch topical DAILY 07/02/23 07/30/23 amlodipine 5 mg tablet 5 mg PO DAILY 07/13/23 07/30/23 bupropion HCl 150 mg 24 hr tablet, 150 mg PO DAILY 07/13/23 07/30/23 extended release fluticasone propionate 50 2 spray intranasal DAILY 07/13/23 07/30/23 mcg/actuation nasal spray,suspension lisinopril 40 mg tablet 20 mg PO HS 07/13/23 07/30/23 simvastatin 20 mg tablet 20 mg PO DAILY 07/13/23 07/30/23 Allergies Allergy/AdvReac Type Severity Reaction Status Date / Time Sulfa (Sulfonamide Allergy Unknown Rash Verified 07/30/23 11:36 Antibiotics) tramadol Allergy Unknown Chest Pain Verified 07/30/23 11:36 nitroglycerin AdvReac Unknown Hypotension Verified 07/30/23 11:36 Review of Systems Review of Systems: CONSTITUTIONAL: Denies body aches, fever, chills, or sweats. EYES: Denies visual changes, redness, or discharge. ENT: Denies rhinorrhea, congestion, sore throat, or otalgia. CARDIOVASCULAR: Denies chest pain, palpitations, or edema. RESPIRATORY: Denies cough or dyspnea. GASTROINTESTINAL: Denies abdominal pain, nausea, vomiting, or diarrhea. GENITOURINARY: Denies dysuria or hematuria. SKIN: + skin tear to left wrist MUSCULOSKELETAL: Denies back pain, joint pain, or myalgia. NEUROLOGIC: Denies headache, numbness, tingling, or weakness. PSYCH: Denies depression or anxiety. [facility] Past Medical History Medical History Abdominal hernia Benign essential hypertension BMI 22.0-22.9, adult BMI 23.0-23.9, adult BMI 24.0-24.9, adult Breast tenderness in female Canker sores oral Carotid bruit Chronic cough Colon cancer screening Ear congestion Encounter for general adult medical examination w/o abnormal findings Encounter for Medicare annual wellness exam Family history of diabetes mellitus Follow up Frequent UTI Hair loss Hearing loss Heart palpitations Hormone replacement therapy (HRT) Hot flashes Hyperlipidemia Hyponatremia Hypothyroidism (acquired) Left hip pain Left upper quadrant pain Low back pain Lung nodule Nasal septal deviation On fdc drug therapy Overactive bladder Pain of left breast Post-nasal drainage Pre-diabetes Rash Sinus symptom Tenderness of left axilla Vitami
== END 2023-07-30 12:26 | disposition home or self-care (01) ==
PROVIDERS: Emergency Provider Nurse Practitioner; PCP Internal Medicine
DX: S61.512A Laceration without foreign body of left wrist, initial encounter (principal); X58.XXXA Exposure to other specified factors, initial encounter; I10 Essential (primary) hypertension; E78.5 Hyperlipidemia, unspecified; E03.9 Hypothyroidism, unspecified; E53.8 Deficiency of other specified B group vitamins
CPT/HCPCS: 99212; G0463

== ENCOUNTER 2024-01-28 10:17 | Outpatient (CLI) | payer MEDICARE, OTHER, SELFPAY ==
--- NOTE | ~2024-01-28 | CT_ITS ---
Non-contrast CT scan of the Abdomen and Pelvis Clinical indication: Incisional hernia Technique: 2.5 mm axial scans were obtained through the abdomen and pelvis without intravenous or or al contrast. Dose reduction technique was used on this scan by utilizing automated exposure control a nd iterative reconstruction technique. The dose-length product (DLP) was 467.54 mGy-cm. COMPARISON: 05/11/2023 Findings: Images through the lung bases reveal no abnormalities. There is no evidence of renal or ureteral calculi. The kidneys and the ureters are nondilated. The liver, spleen, pancreas, gallbladder, and adrenals appear normal. There are atherosclerotic calci fications of the aorta. There is no evidence of bowel obstruction. Extensive stool suggests constipation. Images through the pelvis were performed. There is no evidence of ascites or lymphadenopathy. Urinary bladder unremarkable. No pelvic mass seen. No ascites. Impression: Constipation. No other significant abnormality seen. Reviewed, dictated and finalized at [facility]. Impression: Constipation. No other significant abnormality seen.
== END 2024-01-28 10:18 ==
LOC: MICIMG 10:19
PROVIDERS: PCP Internal Medicine; Visit Provider Surgery
DX: K43.2 Incisional hernia without obstruction or gangrene (principal); K59.00 Constipation, unspecified
CPT/HCPCS: 74176

== ENCOUNTER 2024-06-12 12:50 | Outpatient (CLI) | payer MEDICARE, OTHER, SELFPAY ==
--- NOTE | 2024-06-12 13:00 | ECG_ITS ---
Test Date: 2024-06-12 13:27:23 Measurements Intervals Bastian Rate: 75 P: -10 MT: 202 QRS: 3 QRSD: 107 T: 61 QT: 373 QTc: 418 Interpretive Statements SINUS RHYTHM MINIMAL VOLTAGE CRITERIA FOR LVH, CONSIDER NORMAL VARIANT [MEETS CRITERIA IN ONE OF: R(aVL), S(V1), R(V5), R(V5/V6)+S(V1)] No previous ECG available for comparison Electronically Signed On 06-13-2024 16:37:26 CHIEF WHEELAGE CLERK by Viki Boswell M.D.
== END 2024-06-12 12:51 | disposition home or self-care (01) ==
LOC: ANHSURGERY 13:04
PROVIDERS: PCP Internal Medicine; Visit Provider Surgery
DX: I10 Essential (primary) hypertension (principal)
CPT/HCPCS: 93005

== ENCOUNTER 2024-10-23 16:05 | Outpatient (CLI) | payer MEDICARE, OTHER, SELFPAY ==
--- NOTE | ~2024-10-23 | US_ITS ---
EXAMINATION: US carotid duplex BI DATE: 10/23/2024 16:46 INDICATION: Other symptoms and signs involving the circulatory and respiratory system. Moderate ather osclerosis and stenosis. TECHNIQUE: Grayscale, color Doppler, and pulsed Doppler images of the cervical carotid arteries were obtained. The degree of vessel stenosis is placed in one of the following categories: normal, <50%, 5 0-69%, >=70% but less than near-occlusion, near-occlusion, or total occlusion. Note that percent sten osis relative to normal distal artery lumen diameter is indirectly measured from velocity measurement s as described by Jeffrey, et al. Radiology 2003; 229:340-346. COMPARISON: 04/21/2021 FINDINGS: RIGHT: The right common carotid artery (CCA) peak systolic velocity (PSV) is 64 cm/s. The right internal car otid artery (ICA) PSV is 72 cm/s. The right ICA end-diastolic velocity (EDV) is 22 cm/s. The right IC A/CCA PSV ratio is 1.1. Grayscale and color Doppler images yield an estimate of <50% diameter reducti on from plaque in the ICA. The external carotid artery (ECA) PSV is 56 cm/s. There is antegrade flow in the right vertebral artery. LEFT: The left CCA PSV is 59 cm/s. The left ICA PSV is 75 cm/s. The left ICA EDV is 23 cm/s. The left ICA/C CA PSV ratio is 1.3. Grayscale and color Doppler images yield an estimate of <50% diameter reduction from plaque in the ICA. The ECA PSV is 69 cm/s. There is antegrade flow in the left vertebral artery. IMPRESSION: 1. <50% stenosis in the right internal carotid artery. 2. <50% stenosis in the left internal carotid artery. Reviewed, dictated and finalized at location A.
--- OUTSIDE RECORDS SUMMARY | 2024-10-23 16:10 | XMS_ITS | Clinical Summary ---
Author Organization [facility] Address [address] [place] [phone] Phone Care Team Providers Care Loading Dock Hand Name Role Phone Kirk Jack MD Primary Care Provider [phone] Allergies Active Allergy Reactions Criticality Noted Date Comments Methylprednisolone Nitroglycerin Sulfa Antibiotics Tramadol Medications amLODIPine (NORVASC) 5 MG tablet 1 tab/cap qday 0 09/09/2017 Active buPROPion XL (WELLBUTRIN XL) 150 MG 24 hr tablet 1 tab/cap qday 0 09/09/2017 Active pantoprazole (PROTONIX) 40 MG EC tablet 1 tab/cap qday 0 09/09/2017 Active simvastatin (ZOCOR) 20 MG tablet 1 tab/cap qday 0 09/09/2017 Active lisinopril (PRINIVIL,ZESTR IL) 40 MG tablet 1 tab/cap bid 0 09/09/2017 Activ e solifenacin (VESICARE) 5 MG tablet 1 tab/cap qday 0 09/09/2017 Active ALPRAZolam (XANAX) 0.25 MG tablet 07/08/2020 Active desonide (DESOWEN) 0.05 % cream 09/15/2020 Active mometasone (ELOCON) 0.1 % cream APPLY AND RUB IN WELL TO HAND RASH TWICE DAILY DIRECTED. DO NOT USE ON FACE OR GENITALS 10/08/2020 Active clobetasol (TEMOVATE) 0.05 % gel APPLY TO SORES IN MOUTH TWICE DAILY 12/30/2021 Active levothyroxine (SYNTHROID) 88 MCG tablet Take 88 mcg by mouth 1 (one) time each day 01/09/2022 Active Active Problems Problem Noted Date Diagnosed Date Hypo-osmolality and hyponatremia 09/09/2017 Essential (primary) hypertension 09/09/2017 Other hyperlipidemia 09/09/2017 Overview (08/17/2018): Converted unresolved ICD9, potential mismatch. Other specified hypothyroidism 09/09/2017 Immunizations Immunization Administration Dates Next Due Influenza Trivalent Adjuvanted 06/04/2018 Sars-cov-2, Unspecified 10/09/2020 Family History Medical History Relation Comments Kidney disease Neg Hx Kidney stone Neg Hx Social History Tobacco Use Types Packs/Day Years Used Date Smoking Tobacco: Never Smokeless Tobacco: Never Alcohol Use Standard Drinks/Week Comments No 0 (1 standard drink = 0.6 oz pur e alcohol) Comments Unknown Sex and Gender Information Value Date Recorded Sex Assigned at Not on file Legal Sex Female 9:40 AM MST Gender Identity Not on file Sexual Orientation Not on file Last Filed Vital Signs Vital Sign Reading Time Taken Comments Blood Pressure 132/74 01/25/2022 4:03 PM CDT Pulse - - Temperature 36.2 C (97.2 F) 01/25/2022 4:03 PM CDT Respiratory Rate 18 01/25/2022 4:03 PM CDT Oxygen Saturation - - Inhaled Oxygen Concentration - - Weight 62.6 kg (138 lb) 01/25/2022 4:03 PM CDT Height 165.1 cm (5' 5 ) 01/25/2022 4:03 PM CDT Body Mass Index 22.96 01/25/2022 4:03 PM CDT Plan of Treatment Health Maintenance Due Date Last Done Comments Pneumococcal PPSV23/PCV13 65 + Years / Low and Medium Risk (1 of 4 - PCV) 1990 Influenza Vaccine (Season Ended) 2025 06/04/19 19 Insurance MEDICARE Care Teams Loading Dock Hand Relationship Specialty Start Date End Date Kirk Jack MD [address] [place] [id number] PCP - General Internal Medicine 08/28/18
--- OUTSIDE RECORDS SUMMARY | 2024-10-23 16:10 | XMS_ITS | Encounter Summary ---
Author Organization [facility] Address [address] [place] [address] Care Team Providers Care Armature Winder Name Role Phone Daron Ortez MD Primary Care Provider [phone] Encounter Details Date Type Department Care Team (Late st Contact Info) Description 01/04/2022 Lab Requisition [facility] DermPath Lab [address] [place] [phone] Myron Lam MD [address] [place] [address] Social History Tobacco Use Types Packs/Day Years Used Date Smoking Tobacco: Never Assessed Comments Unknown Sex and Gender Information Value Date Recorded Sex Assigned at Not on file 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 Gender Identity Not on file Sexual Orientation Not on file documented as of this encounter Plan of Treatment Not on file documented as of this encounter Procedures Procedure Name Priority Date/Time Associated Diagnosis Comments DERMATOPATHOLOGY Routine 01/03/2022 3:33 AM CDT documented in this encounter Results * DERMATOPATHOLOGY (01/03/2022 3:33 AM CDT) Case Report Dermatopathology Report Case: [id number] Authorizing Provider: Myron Lam MD Collected: 01/03/2022 03:33 AM Ordering Location: [facility] DermPath Lab Received: 01/04/2022 01:45 PM Pathologist: Cristel Dee MD Specimen: Skin, right mid ulnar forearm 4:23 PM CDT DERMATOPATHOLOGY LABORATORY Final Diagnosis Specimen A. SKIN, right mid ulnar forearm: ACTINIC KERATOSIS (L57.0) DERMAL FIBROSIS (L90.5) (see microscopic description) 2 4:23 PM T DERMATOPATHOLOGY LABORATORY at 1623 CDT Clinical History R/O SCC, BCC 4:23 PM [facility] DERMATOPATHOLOGY LABORATORY Gross Description Specimen A: Received is one formalin filled container labeled with the patient's name and designated right mid ulnar forearm. The specimen consists of a shave biopsy measuring [id number]. Jar 0. 4:23 PM [facility] DERMATOPATHOLOGY LABORATORY Microscopic Description Specimen A. SKIN, right mid ulnar forearm: There is focal parakeratosis. The lower half of the epidermis shows disorderly maturation of keratinocytes with nuclear pleomorphism. There is focal dermal fibrosis that extends to the base of the specimen. The hematoxylin and eosin stain is reviewed; immunohistochemical stains are performed to further assess the histologic features. S100 staining highlights regular periodicity of melanocytes along the dermoepidermal junction as well as scattered dermal dendritic cells. The foci of dermal fibrosis shows focal weak staining with SMA as well as scattered positivity with Factor XIIIa. Desmin is positive within arrector gray muscles. Additional deeper sections were obtained and reviewed. 4:23 PM [facility] DERMATOPATHOLOGY LABORATORY Disclaimer An external and internal positive and negative controls are appropriate for the histochemical, immunohistochemical and immunofluorescence stain(s) in this case (if any), except where stated explicitly. The performance characteristics of the stain(s) cited in this report were developed and its performance characteristic determined by the Dermatopathology Laboratory at [facility], directed by Dr. Sofiya Bran. These tests need not be, and therefore are not, approved by the [place] Food and Drug Administration. The tests are used for clinical purposes. Billing Codes Specimen Charges Stain Charges 66960 1 85142 15347 97553 99974 1 1 1 1 2 4:23 PM CDT DERMATOPATHOLOGY LABORATORY Embedded Images 2 4:23 PM CDT DERMATOPATHOLOGY LABORATORY Pathology/Cytolo gy TISSUE SPECIMEN FROM SKIN / Unknown 01/03/2022 3:33 AM CDT 01/04/2022 1:45 PM CDT us Myron Lam MD LAB - PATHOLOGY/CYTOLOGY ORD ERABLES Final Result DERMATOPATHOLOGY LABORATORY [facility] - Department of Dermatology [address], [address] [phone] documented in this encounter Visit Diagnoses Not on filedocumented in this encounter Care Teams Armature Winder Relationship Specialty Start Date End Date Daron Ortez MD [address] [place] [address] [place] [id number] PCP - General 11/22/10 documented as of this encounter
--- OUTSIDE RECORDS SUMMARY | 2024-10-23 16:10 | XMS_ITS | Clinical Summary ---
Author Organization [facility] Address [address] [place] [address] Care Team Providers Care Specimen Boss Name Role Phone Daron Ortez MD Primary Care Provider [phone] Source Comments [facility],non-owned Affiliates and Associated Physician Practices is amultiple site organization consisting of ambulatory clinics and hospital sitesin [place], [place], [place] and [place]. This disclosure is being madepursuant to the Care Everywhere program and may not contain all information available regarding this patient. 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 Gender Identity Not on file Sexual Orientation Not on file Plan of Treatment Health Maintenance Due Date Last Done Comments BONE DENSITY TESTING 1940 MEDICARE AWV 12 MONTHS 1940 DTAP/TDAP/TD VACCINES (1 - Tdap) 1959 PNEUMOCOCCAL VACCINE 50+ (1 of 1 - PCV) 1990 ZOSTER VACCINE (1 of 2) 1990 Respiratory Syncytial Virus (RSV) Vaccine Pt: or over 60 yrs (1 - 1-dose 75+ series) 2015 COVID-19 VACCINE ( - 2023-2 5 season) 2024 DEPRESSION SCREENING 06/04/2024 INFLUENZA VACCINE (Season Ended) 2025 HEPATITIS B VACCINE Aged Out No longe r eligible based on patient's age to complete this topic HIB VACCINE Aged Out No longer eligi ble based on patient's age to complete this topic HPV VACCINE Aged Out No longer eligi ble based on patient's age to complete this topic MENINGOCOCCAL (Group B) VACC INE SHARED DECISION-MAKING Aged Out No longer eligibl e based on patient's age to complete this topic MENINGOCOCCAL GROUPS A/C/Y/W VACCINE Aged Out No longer eligible b ased on patient's age to complete this topic Insurance MEDICARE [facility] Care Teams Specimen Boss Relationship Specialty Start Date End Date Daron Ortez MD [address] [place] [address] MARELY PHILLIPS [phone] PCP - General 11/22/10
--- OUTSIDE RECORDS SUMMARY | 2024-10-23 16:10 | XMS_ITS | Continuity of Care Document ---
Author Organization [facility] Address [id number] [place] [address] [place] [address] Phone Care Team Providers Care Support Group Manager Name Role Phone Sam Lanza Unavailable Unavailable Procedures Procedure Date Post-op Follow-up Visit Post-op Follow-up Visit Remove Cataract, Insert Lens,Comanaged J PreOp Assessment Performed Office/outpatient Visit, [facility] Advance Directives Directive Yes / No Effective Date File Name No Information Encounters Encounter Description Practice Location Reason(s) For Visit Diagnoses Date Provider Providers Copied on Encounter [facility], [address] [place] [address] [address], [place], [place], [id number], tel:[phone] [facility] No Information [address]. [address], [place], [place], [facility], [place]. tel:[phone] [facility], [address] [place] [address] [address], [place], [place], [id number], [place] tel:[phone] [facility] No Information [address]. [address], [place], [address], [place]. tel:[phone] [facility], [address] [place] [address] [address], [place], [place], [id number], [place] tel:[phone] [facility] No Information 0-201 0 Doisy Edward. [address], [place], [address], [place]. tel:[phone] Referring Provider: Jaxson Schwartz OD, [address] [place], [address]. tel:[phone] Office/outpat ient Visit, [facility], [address], [place], [place], [id number], [place] tel:[phone] [facility] No Information [phone] 0 Doisy Edward. [address] , [address], [place], [address], [place]. tel:[phone] Referring Provider: Jaxson Schwartz OD, [address] [place], [address]. tel:[phone] Family History Family Member Type Diagnosis Age At Onset No Information Payers Payer name Insurance type Covered republican ID Authoriza tion(s) No Information Social History [...]
== END 2024-10-23 16:06 | disposition home or self-care (01) ==
PROVIDERS: PCP Internal Medicine; Visit Provider Internal Medicine
DX: R09.89 Other specified symptoms and signs involving the circulatory and respiratory systems (principal); I65.23 Occlusion and stenosis of bilateral carotid arteries
CPT/HCPCS: 93880

== ENCOUNTER 2024-10-29 11:16 | Outpatient (CLI) | payer MEDICARE, OTHER, SELFPAY ==
--- NOTE | ~2024-10-29 | MM_ITS ---
EXAMINATION: MM screening [facility] BI w rommel HISTORY: Screening TECHNIQUE: Craniocaudal and mediolateral oblique 3-D tomosynthesis images were obtained and synthetic 2-D images were generated. CAD analysis was submitted and interpreted. COMPARISON: Comparison to multiple prior studies sequentially, with oldest reviewed study dated 01/11. BREAST PARENCHYMAL COMPOSITION: Not dense: There are scattered areas of fibroglandular density. FINDINGS: There is no evidence of suspicious mass, calcification, or architectural distortion to sugg est malignancy in either breast. There has been no suspicious interval change. IMPRESSION: 1. No mammographic evidence of malignancy. 2. Recommend routine screening mammography in one year. BI-RADS Category 1: Negative Reviewed, dictated and finalized at location A.
== END 2024-10-29 11:17 | disposition home or self-care (01) ==
LOC: MICIMG 11:18
PROVIDERS: PCP Internal Medicine; Visit Provider Internal Medicine
DX: Z12.31 Encounter for screening mammogram for malignant neoplasm of breast (principal)
CPT/HCPCS: 77063; 77067

== ENCOUNTER 2025-02-11 11:41 | Outpatient (CLI) | payer MEDICARE, OTHER, SELFPAY ==
--- OUTSIDE RECORDS SUMMARY | 2009-12-29 04:00 | XMS_ITS | Continuity of Care Document ---
Author Organization [facility] [place] [id number] [place] [address] [place] [address] Phone Care Team Providers Care Security Officer Name Role Phone Sam Lanza Unavailable Unavailable Procedures Procedure Date Post-op Follow-up Visit Post-op Follow-up Visit Remove Cataract, Insert Lens,Comanaged J PreOp Assessment Performed Office/outpatient Visit, [facility] Advance Directives Directive Yes / No Effective Date File Name No Information Encounters Encounter Description Practice Location Reason(s) For Visit Diagnoses Date Provider Providers Copied on Encounter [facility], [address] [place] [address] [address], [place], [place], [id number], tel:[phone] [facility] No Information 8201 [address] Pool Vargas. [address], [place], [place], [facility], [place]. tel:[phone] [facility], [address] [place] [address] [address], [place], [place], [id number], [place] tel:[phone] [facility] No Information 1201 0 [address] Vargas. [address], [place], [address], [place]. tel:[phone] [facility], [address] [place] [address] [address], [place], [place], [id number], [place] tel:[phone] [facility] No Information 0-201 0 Doisy Edward. [address], [place], [address], [place]. tel:[phone] Referring Provider: Jaxson Schwartz OD, [address] [place], [address]. tel:[phone] Office/outpat ient Visit, [facility], [address], [place], [place], [id number], [place] tel:[phone] [facility] No Information 8-201 0 Doisy Edward. [address] , [address], [place], [address], [place]. tel:[phone] Referring Provider: Jaxson Schwartz OD, [address] [place], [address]. tel:[phone] Family History Family Member Type Diagnosis Age At Onset No Information Payers Payer name Insurance type Covered constitution party ID Authoriza tion(s) No Information Social History Type Description Quantity Date Captured Comments Sex Female Smoking Status No Information Chief Complaint And Reason For Visit No Information Reason For Referral Reason For Referral No Information History Of Present Illness Encounter Date Complaint History Of Prese nt Illness No Information Functional Status Date Functional Assessmen t No Information Instructions Date Instruction Additional Infor mation No Information Assessments Type Assessment Date No Information Patient Care Teams Name Effective Dates (start - stop) Status Members No Information
--- NOTE | ~2025-02-11 | CT_ITS ---
EXAMINATION: CTA BRAIN/CAROTID DATE: 02/11/2025 12:11 INDICATION: Facial weakness TECHNIQUE: Computed tomographic angiography (CTA) of the head and neck was performed with 100 mL Omnipaque-350 intravenous contrast. Multiplanar reconstructions and maximum intensity projection 3D-reconstructions of the carotid arteries and of the intracranial arteries were created by the technologist on a separate workstation. Precontrast CT of the head was also obtained. Automated exposure control and iterative reconstruction technique were employed.The dose-length product was 1601.03 mGy-cm. COMPARISON: Head CT dated 08/11/2020 FINDINGS: Head: No acute intracranial hemorrhage, acute infarction or abnormal extra axial fluid collection. There is mild scattered white matter hypoattenuation consistent with chronic small vessel ischemic disease. Ventricles are normal and symmetric. No mass/mass effect. No abnormally enhancing brain lesions on the postcontrast imaging. The orbits, paranasal sinuses and mastoid air cells are normal. Intracranial arteries Vertebral arteries are codominant. There is nonhemodynamically significant atherosclerotic calcification along the bilateral carotid siphons. There is no hemodynamically significant stenosis in the vertebral, basilar and internal carotid arteries. Both A1 and P1 segments are patent. There are no aneurysms identified. Cerebral arterial arborization appears symmetric. Carotid arteries: The aortic arch and the great vessels arising from the arch are normal in caliber with no dissection or hemodynamically significant stenosis. There is no atherosclerotic plaque with 0% stenosis of the right left carotid bulbs relative to normal distal artery lumen diameter (NASCET criteria). Extracranial vertebral arteries are codominant with no evident stenosis. Cervical soft tissues are unremarkable. Mild dependent atelectasis in the visualized upper lungs. Moderate to severe cervical spondylosis. IMPRESSION: 1. No evident atherosclerotic plaque with 0% stenosis of the right and left carotid bulbs relative to normal distal artery lumen diameter (NASCET criteria). 2. Normal aging brain with mild scattered white matter hypoattenuation consistent with chronic small vessel ischemic disease. No acute intracranial process or abnormally enhancing brain lesions. 3. Small amount of nonhemodynamically significant atherosclerotic plaque at the bilateral carotid siphons. No cerebral arterial hemodynamically significant stenosis, thrombosis or aneurysm. Reviewed, dictated and finalized at location A. IMPRESSION: 1. No evident atherosclerotic plaque with 0% stenosis of the right and left car otid bulbs relative to normal distal artery lumen diameter (NASCET criteria). 2. Normal aging brain with mild scattered white matter hypoattenuation consiste nt with chronic small vessel ischemic disease. No acute intracranial process or abnormally enhancing brain lesions. 3. Small amount of nonhemodynamically significant atherosclerotic plaque at th e bilateral carotid siphons. No cerebral arterial hemodynamically significant s tenosis, thrombosis or aneurysm.
--- OUTSIDE RECORDS SUMMARY | 2025-02-11 12:46 | XMS_ITS | Clinical Summary ---
Author Organization [facility] Address [address] [place] [address] Care Team Providers Care Kitchen Utility Associate Name Role Phone Unavailable Primary Care Provider Unavailabl e Social History Tobacco Use Types Packs/Day Years Used Date Smoking Tobacco: Never Assessed Comments Unknown Sex and Gender Information Value Date Recorded Sex Assigned at Not on file Legal Sex Female 6:29 PM CDT Gender Identity Not on file Sexual Orientation Not on file Plan of Treatment Health Maintenance Due Date Last Done Comments DTaP, Tdap and Td Vaccines ( 1 - Tdap) 1959 Pneumococcal Vaccine: 50+ Ye ars (1 of 1 - PCV) 1990 Zoster Vaccines (1 of 2) 1990 Dexa Scan (General) 2005 RSV Immunization or 60+ Years (1 - 1-dose 75+ series) 2015 COVID-19 Vaccine (2023-2 5 season) 2025 Meningococcal B Vaccine Aged Out No l onger eligible based on patient's age to complete this topic Meningococcal Vaccine Aged Out No audrey drake eligible based on patient's age to complete this topic RSV Immunizations Under 20 Months Aged Out No longer eligible based on patient's age to complete this topic
--- OUTSIDE RECORDS SUMMARY | 2025-02-11 12:46 | XMS_ITS | Clinical Summary ---
Author Organization [facility] Address [address] [place] [address] Care Team Providers Care Correctional Case Manager Name Role Phone Daron Ortez MD Primary Care Provider Source Comments [facility],non-owned Affiliates and Associated Physician Practices is amultiple site organization consisting of ambulatory clinics and hospital sitesin [place], [place], [place] and [place]. This disclosure is being madepursuant to the Care Everywhere program and may not contain all information available regarding this patient. 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 Gender Identity Not on file Sexual Orientation Not on file Plan of Treatment Health Maintenance Due Date Last Done Comments BONE DENSITY TESTING 1940 DTAP/TDAP/TD VACCINES (1 - Tdap) 1959 PNEUMOCOCCAL VACCINE 50+ (1 of 1 - PCV) 1990 ZOSTER VACCINE (1 of 2) 1990 Respiratory Syncytial Virus (RSV) Vaccine Pt: or over 60 yrs (1 - 1-dose 75+ series) 2015 DEPRESSION SCREENING 06/04/2024 COVID-19 VACCINE (1 - 2023-2 5 season) 2025 INFLUENZA VACCINE (#1) 2025 HEPATITIS B VACCINE Aged Out No [...] age to complete this topic Insurance MEDICARE [facility] Care Teams Correctional Case Manager Relationship Specialty Start Date End Date Daron Ortez MD [address] [place] [address] MARELY PHILLIPS [phone] PCP - General 11/22/10
--- OUTSIDE RECORDS SUMMARY | 2025-02-11 12:46 | XMS_ITS | Clinical Summary ---
Author Organization [facility] Address [address] [place] [address] Phone Care Team Providers Care Revit Drafter Name Role Phone Kirk Jack MD Primary Care Provider [phone] Allergies Active Allergy Reactions Criticality Noted Date [...] 4:03 PM CDT Height 165.1 cm (5' 5) 01/25/2022 4:03 PM CDT Body Mass Index 22.96 01/25/2022 4:03 PM CDT Plan of Treatment Health Maintenance Due Date Last Done Comments Pneumococcal PPSV23/PCV13 65 + Years / Low and Medium Risk (1 of 2 - PCV) 1990 Influenza Vaccine (#1) 2025 06/04/2018 Insurance MEDICARE Care Teams Revit Drafter Relationship Specialty Start Date End Date Kirk Jack MD [address] [place] [address] PCP - General Internal Medicine 08/28/18
--- OUTSIDE RECORDS SUMMARY | 2025-02-11 12:46 | XMS_ITS | Encounter Summary ---
Author Organization [facility] Address [address] [place] [address] Care Team Providers Care Title Curative Specialist Name Role Phone Daron Ortez MD Primary Care Provider [phone] Encounter Details Date Type Department Care Team (Late st Contact Info) Description 01/04/2022 Lab Requisition [facility] DermPath Lab [address] [place] [phone] Myron Lam MD [address] [place] [address] Social History Tobacco Use Types Packs/Day Years Used Date Smoking Tobacco: Never Assessed Comments Unknown Sex and Gender Information Value Date Recorded Sex Assigned at Not on file 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 Gender Identity Not on file Sexual Orientation Not on file documented as of this encounter Plan of Treatment Not on file documented as of this encounter Procedures Procedure Name Priority Date/Time Associated Diagnosis Comments DERMATOPATHOLOGY Routine 01/03/2022 3:33 AM CDT documented in this encounter Results * DERMATOPATHOLOGY (01/03/2022 3:33 AM CDT) Case Report Dermatopathology Report Case: [id number] Authorizing Provider: Myron Lam MD Collected: 01/03/2022 03:33 AM Ordering Location: [facility] DermPath Lab Received: 01/04/2022 01:45 PM Pathologist: Cristel Dee MD Specimen: Skin, right mid ulnar forearm 4:23 PM CDT DERMATOPATHOLOGY LABORATORY Final Diagnosis Specimen A. SKIN, right mid ulnar forearm: ACTINIC KERATOSIS (L57.0) DERMAL FIBROSIS (L90.5) (see microscopic description) 2 4:23 PM T DERMATOPATHOLOGY LABORATORY at 1623 CDT Clinical History R/O SCC, BCC 4:23 PM [facility] DERMATOPATHOLOGY LABORATORY Gross Description Specimen A: Received is one formalin filled container labeled with the patient's name and designated right mid ulnar forearm. The specimen consists of a shave biopsy measuring [id number]. Jar 0. 4:23 PM [facility] DERMATOPATHOLOGY LABORATORY Microscopic Description Specimen A. SKIN, [...] sections were obtained and reviewed. 4:23 PM [facility] DERMATOPATHOLOGY LABORATORY Disclaimer An external and internal positive and negative controls are appropriate for the histochemical, immunohistochemical and immunofluorescence stain(s) in this case (if any), except where stated explicitly. The performance characteristics of the stain(s) cited in this report were developed and its performance characteristic determined by the Dermatopathology Laboratory at [facility], directed by Dr. Sofiya Bran. These tests need not be, and therefore are not, approved by the [place] Food and Drug Administration. The tests are used for clinical purposes. Billing Codes Specimen Charges Stain Charges 42652 1 29700 23005 86918 63221 1 1 1 1 2 4:23 PM CDT DERMATOPATHOLOGY LABORATORY Embedded Images 2 4:23 PM CDT DERMATOPATHOLOGY LABORATORY Pathology/Cytolo gy TISSUE SPECIMEN FROM SKIN / Unknown 01/03/2022 3:33 AM CDT 01/04/2022 1:45 PM CDT us Myron Lam MD LAB - PATHOLOGY/CYTOLOGY ORD ERABLES Final Result DERMATOPATHOLOGY LABORATORY [facility] - Department of Dermatology [address], [address] [phone] documented in this encounter Visit Diagnoses Not on filedocumented in this encounter Care Teams Title Curative Specialist Relationship Specialty Start Date End Date Daron Ortez MD [address] [place] [address] [place] [phone] PCP - General 11/22/10 documented as of this encounter
== END 2025-02-11 11:42 | disposition home or self-care (01) ==
PROVIDERS: PCP Internal Medicine; Visit Provider Internal Medicine
DX: R29.810 Facial weakness (principal); R22.0 Localized swelling, mass and lump, head; I10 Essential (primary) hypertension; E78.2 Mixed hyperlipidemia
CPT/HCPCS: 70496; 70498; Q9967

== ENCOUNTER 2025-05-29 12:20 | Emergency (ER) | payer MEDICARE, OTHER, SELFPAY ==
[2025-05-29 12:31] VITALS: BP 128/82; PULSE 64; RESP 16; TEMP 36.6; O2SAT 98
--- NOTE | 2025-05-29 13:09 | ED.WOUNDLAC ---
HPI - Wound/Laceration General Chief Complaint: Skin/Abscess/Foreign Body Stated Complaint: Skin Tear Time Seen by Provider: 05/29/25 13:09 Source: patient, RN notes reviewed and old records reviewed Mode of arrival: ambulatory Limitations: no limitations History of Present Illness HPI narrative: 85-year-old female presents to the [facility] with a skin tear. Patient states that she got scratched by her dog, cleaned it, put Steri-Strips on it. Occurred at 4:00 p.m. yesterday. Area is clean dry, well approximated, Steri-Strips in place. Related Data Home Medications ?Medication ?Instructions ?Recorded ?Confirmed ?Last Taken ?Type fexofenadine 180 mg tablet 180 mg PO DAILY 04/24/19 05/29/25 06/19/24 History (Livia Allergy) lysine 500 mg tablet 500 mg PO DAILY 04/24/19 05/29/25 06/17/24 History multivitamin 1 tablet PO DAILY 04/24/19 05/29/25 06/17/24 History solifenacin 5 mg tablet (Vesicare) 5 mg PO DAILY 04/24/19 05/29/25 06/19/24 History vit C 250 mg-vit E 90 mg-zinc 40 1 tablet PO BID 04/24/19 05/29/25 06/17/24 History mg-copper 1 [id number] capsule (PreserVision AREDS-2) mecobalamin (vitamin B12) 1,000 1,000 mcg PO DAILY 11/24/20 05/29/25 Unknown History mcg disintegrating tablet,sublingual polyethylene glycol 3350 17 17 g PO PRN PRN Constipation 11/24/20 05/29/25 Unknown History gram/dose oral powder (Miralax) ascorbic acid (vitamin C) 1,000 mg 1 g PO DAILY 07/02/23 05/29/25 06/17/24 History tablet conjugated estrogens 0.625 mg/gram 0.625 mg vaginal .2 -3 times a week 01/15/24 05/29/25 Unknown History vaginal cream (Premarin) famotidine 10 mg tablet 10 mg PO BID 01/15/24 05/29/25 06/19/24 History omega-3 fatty acids-fish oil 360 2 cap PO DAILY 01/15/24 05/29/25 06/17/24 History mg-1,200 mg capsule (Fish Oil) nitrofurantoin macrocrystal 100 mg 100 mg PO Q12H PRN unknown 09/08/24 05/29/25 Unknown History capsule cetirizine 10 mg capsule (Zyrtec) 10 mg PO DAILY 02/11/25 05/29/25 Unknown History Allergies Allergy/AdvReac Type Severity Reaction Status Date / Time GILBERT Inhibitors Allergy Severe Edema Verified 05/29/25 12:38 Sulfa (Sulfonamide Allergy Unknown Rash Verified 05/29/25 12:38 Antibiotics) tramadol Allergy Unknown Chest Pain Verified 05/29/25 12:38 nitroglycerin AdvReac Unknown Hypotension Verified 05/29/25 12:38 Review of Systems Review of Systems: All systems reviewed & are unremarkable except as noted in HPI and below Constitutional: Constitutional: Reports no additional constitutional complaints Respiratory: Respiratory: Reports no additional respiratory complaints, Denies chest congestion, Denies cough and Denies dyspnea Musculoskeletal: Musculoskeletal: Reports no additional musculoskeletal complaints Integumentary/Breasts: Skin/Breast: Reports as per HPI PMFSH Past Medical History Medical History Right facial swelling Abdominal hernia Pre-diabetes Vitamin B12 deficiency Breast tenderness in female Canker sores oral Hair loss Left upper quadrant pain Sinus symptom Tenderness of left axilla BMI 22.0-22.9, adult Carotid bruit Frequent UTI Ear congestion Hyponatremia Colon cancer screening Low back pain Family history of diabetes mellitus Left hip pain BMI 24.0-24.9, adult Nasal septal deviation Follow up Pain of left breast Post-nasal drainage Chronic cough Rash Lung nodule Heart palpitations Vitamin D deficiency BMI 23.0-23.9, adult Hearing loss Hot flashes Hormone replacement therapy (HRT) Overactive bladder Hypothyroidism (acquired) Hyperlipidemia Benign essential hypertension On cooker chip drug therapy Encounter for Medicare annual wellness exam Encounter for general adult medical examination w/o abnormal findings Surgical History Surgical History History of incisional hernia repair 06/20/24 Open recurrent reducible right lower quadrant abdominal wall incisional hernia repair with Bard Ventralight ST mesh Dr. Bustos Hx of hernia repair Robotic assisted laparoscopic right lower quadrant incisional port site hernia repair with transabdominal preperitoneal (STEPHON) mesh placement of Bard soft mesh, extensive small bowel and colonic adhesiolysis off of the abdominal wall 07/13/23 SAW History of bladder surgery Family History Family History Mother Family history of osteoporosis Sibling Family history of cardiac disorder Father Family history of coronary artery disease Acute myocardial infarction Other Family history of arthritis Hypertension Social History Social History Smoking packs per day: 0.5 Smoking cigarettes per day: 10.0 Years smoked: 20 Smoking pack-years: 10.00 Smoking status: Former smoker Tobacco type: cigarettes Second hand tobacco smoke exposure: No Smoking end date: 06/04/98 Alcohol intake: never Substance use: never Substance use type: does not use Lack of Transportation: No Lack of Food: Never True Current Housing: I Have Housing Concerned About Future Housing: No Difficulty Paying Gas/Electric Bills: No Difficulty Paying for Meds: No Currently Unemployed: No Education: Master's Degree or Higher Difficulty w/ Childcare or Family Care: No Living arrangements: with family Gender identity (if verbalized by the patient): Female Spiritual care concerns: No Comments At the time of my signature, I reviewed and agree with the nursing past medical, surgical, social, and family history. There is no relevant family history pertinent to the patient complaint. Exam Const: General: cooperative, healthy appearing, comfortable, no acute distress, well developed, alert and well nourished Nutritional Appearance: well nourished Orientation/consciousness: patient oriented x3 Limitations: no limitations HENMT: Head: normal to inspection Eyes: General: appearance normal, both eyes and all related structures Alignment and Position: alignment normal Neck: Neck: normal visual inspection, full ROM, no lymphadenopathy and no meningeal signs Chest: Chest palpation & inspection: normal inspection of the chest Resp: Effort & Inspection: normal respiratory effort and able to speak in complete sentences Cardio: Rate: regular rate Skin: General skin exam: normal color and no rashes or lesions noted Other: 4.5 x 3 well-approximated skin tear right dorsal forearm. Neuro: General: patient oriented x3, gait normal, moves all extremities and no meningeal signs Cognition (Neuro): normal cognition Speech: normal speech Gait exam (Neuro): Normal gait present Extrem: General: normal to inspection, full ROM, capillary refill normal and normal gait Psych: Appearance: grossly normal and well kempt Mental Status: mental status grossly normal Speech and movement: Normal speech and movement present and Clear speech present Affect: normal affect Attitude: cooperative Course Course Level of Care: Express Care Visit Vital Signs Vital signs: Vital Signs Temperature 97.8 F 05/29/25 12:31 Pulse Rate 64 05/29/25 12:31 Respiratory Rate 16 05/29/25 12:31 Blood Pressure 128/82 05/29/25 12:31 Pulse Oximetry 98 05/29/25 12:31 Temperature 97.8 F 05/29/25 12:31 Pulse Rate 64 05/29/25 12:31 Respiratory Rate 16 05/29/25 12:31 Blood Pressure 128/82 05/29/25 12:31 Pulse Oximetry 98 05/29/25 12:31 reviewed MDM MDM Narrative Medical decision making narrative: Patient sitting exam room. Patient is nontoxic, vitals stable. Patient presents with a skin tear coming wanting it ?checked? Area is well approximated. Patient burning Steri-Strips to the area. Patient is appropriate outpatient treatment with close follow-up Discharge instructions reviewed with patient, as well as provided in writing per nursing staff. The instructions also include specific and strict return/GO TO THE ER as well as f/u information. All questions have been answered, and the patient deny any further questions with discharge and discharge plan. Some parts of this dictation were generated by voice recognition software and may contain typographical and/or grammatical inaccuracies. Differential Diagnosis Differential Diagnosis: Differential diagnostic considerations for skin/abscess/foreign body issues include abscess of skin or subcutaneous tissue, viral exanthem, dermatophytosis, urticaria, herpes zoster, allergic reaction to drug, cellulitis, eczema, insect bites, impetigo, contact dermatitis, vasculitis. Discharge Plan Discharge Clinical Impression: Skin tear, Skin tear of forearm without complication Patient Disposition: Home Condition: Stable Instructions: Antibiotic Form, Skin Tear (ED) Additional Instructions: Keep area clean and dry. Wash twice a day with warm soapy water, pat dry. When washing, do not scrub the wound. Make a bunch of bubbles above it and let cascade over. Leave open to air for several hours during the day 1 at home. When not at home keep it covered. When you are covering it use a nonadhesive dressing with a very scant amount of bacitracin or Aquaphor. Follow-up with primary care provider in a week to 10 days Patient Language: Tristanian Prescriptions: No Action mecobalamin (vitamin B12) 1,000 mcg tablet,disintegrating 1,000 mcg PO DAILY Rx Instructions: place tablet under tongue and allow to dissolve for at least30 secs before swallowing polyethylene glycol 3350 [Miralax] 17 gram/dose powder 17 g PO PRN PRN (Reason: Constipation) Zyrtec 10 mg capsule 10 mg PO DAILY Patient Comments: For 2 days. valsartan-hydrochlorothiazide 320-12.5 mg tablet 1 tablet PO DAILY Qty: 90 1RF Rx Instructions: Please D/C the Lisinopril. Thank you solifenacin [Vesicare] 5 mg tablet 5 mg PO DAILY fexofenadine [Livia Allergy] 180 mg tablet 180 mg PO DAILY multivitamin Tablet 1 tablet PO DAILY lysine 500 mg tablet 500 mg PO DAILY PreserVision AREDS-2 [id number] [id number]-[id number]-mg capsule 1 tablet PO BID desonide 0.05 % cream 1 applic TOPICAL PRN PRN (Reason: Itching) Qty: 15 1RF nitrofurantoin macrocrystal 100 mg capsule 100 mg PO Q12H PRN (Reason: unknown) Rx Instructions: must administer with a meal/food valacyclovir 1 gram tablet 4,000 mg PO MONTHLY Qty: 30 1RF azelastine 137 mcg (0.1 %) spray,non-aerosol 1 spray intranasal Q12H Qty: 30 3RF Rx Instructions: administer into each nostril ascorbic acid (vitamin C) 1,000 mg Tablet 1 g PO DAILY Slow-Mag 71.5 mg tablet,delayed release (DR/EC) 71.5 mg PO BID Qty: 60 5RF Premarin 0.625 mg/gram cream 0.625 mg vaginal .2 -3 times a week omega-3 fatty acids-fish oil [Fish Oil] 360-1,200 mg capsule 2 cap PO DAILY famotidine 10 mg tablet 10 mg PO BID simvastatin 20 mg tablet See Rx Instructions .ROUTE .COMPLEX Qty: 90 0RF Dose Instruction: TAKE 1 TABLET BY MOUTH DAILY Rx Instructions: TAKE 1 TABLET BY MOUTH DAILY bupropion HCl 150 mg tablet extended release 24 hr See Rx Instructions .ROUTE .COMPLEX Qty: 180 1RF Dose Instruction: TAKE 1 TABLET BY MOUTH TWICE DAILY FOR HOT FLASHES Rx Instructions: TAKE 1 TABLET BY MOUTH TWICE DAILY FOR HOT FLASHES amlodipine 5 mg tablet See Rx Instructions .ROUTE .COMPLEX Qty: 90 1RF Dose Instruction: TAKE 1 TABLET BY MOUTH EVERY DAY Rx Instructions: TAKE 1 TABLET BY MOUTH EVERY DAY levothyroxine 100 mcg tablet See Rx Instructions .ROUTE .COMPLEX Qty: 90 0RF Dose Instruction: TAKE 1 TABLET BY MOUTH DAILY Rx Instructions: TAKE 1 TABLET BY MOUTH DAILY fluticasone propionate 50 mcg/actuation spray,suspension See Rx Instructions .ROUTE .COMPLEX Qty: 48 2RF Dose Instruction: SHAKE LIQUID AND USE 2 SPRAYS IN EACH NOSTRIL DAILY Rx Instructions: SHAKE LIQUID AND USE 2 SPRAYS IN EACH NOSTRIL DAILY clobetasol 0.05 % gel 1 applic topical DAILY Qty: 15 0RF Follow-up/Referrals: Kirk Jack MD [Primary Care Provider, Internal Medicine] - 2 Weeks Clinical Impression: Skin tear of forearm without complication Time of Disposition: 13:19
== END 2025-05-29 13:25 | disposition home or self-care (01) ==
PROVIDERS: Emergency Provider Nurse Practitioner; PCP Internal Medicine
DX: S51.811A Laceration without foreign body of right forearm, initial encounter (principal); W54.8XXA Other contact with dog, initial encounter; I10 Essential (primary) hypertension; E03.9 Hypothyroidism, unspecified; E78.5 Hyperlipidemia, unspecified; E53.8 Deficiency of other specified B group vitamins; R73.03 Prediabetes; Z87.891 Personal history of nicotine dependence
CPT/HCPCS: 99212; G0463